=== PATIENT | male | born 1955 | race Hispanic/Latino ===

== ENCOUNTER 2019-10-08 09:30 | Observation (INO) | payer BC, OTHER ==
--- OUTSIDE RECORDS SUMMARY | 2019-10-08 09:33 | XMS REPORT ---
:1955 [facility] Address [address] [place] [address] Care Team Providers Name Role Phone Unavailable Unavailable Unavailable Payers Payer Name Policy Type Policy Number Effective Date Expiration Date Problems This patient has no known problems. Allergies, Adverse Reactions, Alerts Allergy Allergy Status Severity Reaction(s) Onset Inactive Treating Comments Name Type Date Date Clinician No Known DA Active U 2018-07 Drug - Allergies 00:00:0 0 pollen DA Active SV 2018-07 extracts - 00:00:0 0 No Known DA Active U 2018-07 Allergies 00:00:0 0 Medications This patient has no known medications. Results Test Description Test Time Test Comments Text Results Atomic Results Result Comments - XR KNEE 1 OR 2 V 2019-09-17 15:14:00 Patient Name: MADHU GIL Unit No: [id number] EXAMS: CPT CODE: [id number] XR KNEE 1 OR 2 V LT 00805 LEFT KNEE 2 VIEWS PORTABLE COMMENT: The patient is status post joint replacement which is articulating normally. at 1514 Reported and signed by: Tito Kent MD CC: Milad Julian MD Technologist: RUDDY BRINK (RT.R) Transcribed D/ (6970) [email or web address] [facility] NAME: MADHU GIL [address] [facility] PHYS: Milad Reyez MD : 1955 AGE: 64 SEX: M [place], [place] [address] LOC: Y.315 A PHONE #: [phone] EXAM DATE: 09/16/2019 STATUS: DIS IN FAX #: [phone] RAD #: D/C DT 09/17/2019 PAGE 1 Signed Report Patient Name: MADHU GIL Unit No: [id number] EXAMS: CPT CODE: [id number] XR KNEE 1 OR 2 V LT 11193 <Continued> Orig Print D/T: S: 09/17/2019 (1517) [facility] NAME: MADHU GIL [address] [facility] PHYS: Milad Reyez MD : 1955 AGE: 64 SEX: M [place], [place] [address] LOC: Y.315 A PHONE #: [phone] EXAM DATE: 09/16/2019 STATUS: DIS IN FAX #: [phone] RAD #: D/C DT 09/17/2019 PAGE 2 Signed Report BASIC METABOLIC PANEL 2019-09-17 06:51:00 Test Item Value Reference Range Comments SODIUM (test code=NA) 138 mmol/L 136-145 POTASSIUM (test code=K) 4.7 mmol/L 3.5-5.1 CHLORIDE (test code=CL) 101.0 mmol/L 98-107 CARBON DIOXIDE (test code=CO2) 25.1 mmol/L 21-32 GLUCOSE (test code=GLU) 110 mg/dL 70-110 BLOOD UREA NITROGEN (test 15 mg/dL 7-18 code=BUN) GLOMERULAR FILTRATION RATE (test 79.3 >60 Unit of measure: mL/min/1.73 code=GFR) [id number] Range:Healthy Adults >90 mL/min/1.73 m2 For Chronic Kidney Disease: Stage II Mild Decrease in GFR 60-90 Stage III Moderate Decrease in GFR 30-59 Stage IV Severe Decrease in GFR 15-29 Stage V Kidney Failure <15 CREATININE (test code=CREAT) 0.95 mg/dL 0.55-1.30 CALCIUM (test code=CA) 7.3 mg/dL 8.2-10.1 HGB [id number] 05:48:00 Test Item Value Reference Range Comments HEMOGLOBIN (test code=HGB) 11.2 g/dL 12-16 HEMATOCRIT (test code=HCT) 33.2 % 37-47 COMPREHENSIVE METABOLIC [id number] 13:03:00 Test Item Value Reference Range Comments SODIUM (test code=NA) 139 mmol/L 136-145 POTASSIUM (test code=K) 4.2 mmol/L 3.5-5.1 CHLORIDE (test code=CL) 102.0 mmol/L 98-107 CARBON DIOXIDE (test code=CO2) 27.5 mmol/L 21-32 GLUCOSE (test code=GLU) 96 mg/dL 70-110 BLOOD UREA NITROGEN (test 16 mg/dL 7-18 code=BUN) GLOMERULAR FILTRATION RATE 91.4 >60 Unit of measure: (test code=GFR) mL/min/1.73 [id number] Range:Healthy Adults >90 mL/min/1.73 m2 For Chronic Kidney Disease: Stage II Mild Decrease in GFR 60-90 Stage III Moderate Decrease in GFR 30-59 Stage IV Severe Decrease in GFR 15-29 Stage V Kidney Failure <15 CREATININE (test code=CREAT) 0.84 mg/dL 0.55-1.30 TOTAL PROTEIN (test code=PROT) 7.2 g/dL 6.4-8.2 ALBUMIN (test code=ALB) 4.2 g/dL 3.4-5.0 GLOBULIN (test code=GLOB) 3.0 g/dL 2.2-4.2 ALBUMIN/GLOBULIN RATIO (test 1.4 0.7-2.0 code=A/G) CALCIUM (test code=CA) 9.4 mg/dL 8.2-10.1 BILIRUBIN TOTAL (test 0.60 mg/dL 0.2-1.00 code=BILT) SGOT/AST (test code=AST) 34.0 U/L 15-37 SGPT/ALT (test code=ALT) 34.0 U/L 12-78 Please note new normal range. ALKALINE PHOSPHATASE TOTAL 53 U/L 46-116 (test code=ALKP) CBC W/AUTO [id number] 12:43:00 Test Item Value Reference Range Comments WHITE BLOOD CELL (test code=WBC) 5.3 K/mm3 5.7-10.5 RED BLOOD CELL (test code=RBC) 4.40 M/mm3 4.2-5.4 HEMOGLOBIN (test code=HGB) 13.7 g/dL 12-16 HEMATOCRIT (test code=HCT) 40.7 % 37-47 MEAN CELL VOLUME (test code=MCV) 93 fL 80-98 MEAN CELL HGB (test code=MCH) 31.1 pg 27-34 MEAN CELL HGB CONCENTRATION (test code=MCHC) 33.7 g/dL 30.8-34.1 RED CELL DISTRIBUTION WIDTH (test code=RDW) 12.7 % 11-16 PLT (test code=PLT) 258 K/mm3 130-400 MEAN PLATELET VOLUME (test code=MPV) 9.8 fL 8.9-12.1 NEUTROPHIL % (test code=NT%) 62.8 % 45-70 LYMPHOCYTE % (test code=LY%) 24.4 % 20-40 MONOCYTE % (test code=MO%) 9.7 % 3-10 EOSINOPHIL % (test code=EO%) 1.9 % 1-5 BASOPHIL % (test code=BA%) 0.8 % 0.0-1.1 NEUTROPHIL # (test code=NT#) 3.32 K/mm3 2.00-7.50 LYMPHOCYTE # (test code=LY#) 1.29 K/mm3 1.50-4.00 MONOCYTE # (test code=MO#) 0.51 K/mm3 0.2-0.8 EOSINOPHIL # (test code=EO#) 0.10 K/mm3 0.04-0.4 BASOPHIL # (test code=BA#) 0.04 K/mm3 0.02-0.10 MANUAL DIFF REQUIRED (test code=MDIFF) NO MANUAL DIFF NUCLEATED RED BLOOD CELL (test code=NRBC) 0 % 0-0
[2019-10-08 09:48] VITALS: BMI 29.0
[2019-10-08] MEDS ORDERED: ASPIRIN EC 81 MG TAB PO ONE (10:35)
[2019-10-08 11:16] LABS: Absolute Lymphocytes (CBC) 0.7 K/uL (0.7-4.9); Basophils % 0.8 % (0-1.3); Hematocrit 36.3 % (39.6-49.0); Lymphocytes % 13.3 % (15.3-44.8); MPV 7.5 fL (7.6-11.3); RBC Red Blood Cell Count 3.85 M/uL (4.33-5.43)
[2019-10-08 11:43] LABS: ALT/SGPT 23 U/L (12-78); AST/SGOT 17 U/L (15-37); Albumin 3.8 g/dL (3.4-5.0); Alkaline Phosphatase 78 U/L (45-117); BUN Blood Urea Nitrogen 18 mg/dL (7-18); Bicarbonate 31 mmol/L (21-32); Bilirubin Total 0.5 mg/dL (0.2-1.0); CKMB Creatine Kinase MB < 1.0 ng/mL (0.3-3.6); Creatine Phosphokinase 123 U/L (39-308); Glucose Level 102 mg/dL (74-106); Magnesium 2.5 mg/dL (1.8-2.4); Potassium 5.2 mmol/L (3.5-5.1); Protein, Total 7.3 g/dL (6.4-8.2); Sodium Level 138 mmol/L (136-145); Troponin I < 0.02 ng/mL (0.0-0.045)
[2019-10-08] MEDS ORDERED: PNEUMOCOCCAL VACCINE 0.5 ML IMVAC ONE (12:00)
[2019-10-08] MEDS ORDERED: INFLUENZA VACCINE (for 3y+) 0.5 ML DOSE IMVAC ONE (12:00)
--- NOTE | 2019-10-08 12:15 | RAD REPORT ---
EXAM DESCRIPTION: RAD - Chest Pa And Lat (2 Views) - 10/08/2019 11:52 am CLINICAL HISTORY: chest pain Chest pain. COMPARISON: CHEST PA AND LAT 2 VIEW dated 12/08/2010; CHEST PA AND LAT 2 VIEW dated 11/01/2004 FINDINGS: The lungs are clear. The heart is normal in size. No displaced fractures. IMPRESSION: No acute or concerning finding suspected.
--- NOTE | 2019-10-08 13:23 | EKG ---
Test Date: 2019-10-08 Test Time: 11:59:33 Skinning Machine Feeder: AZALEA MEASUREMENT RESULTS: Intervals: Rate: 68 WI: 196 QRSD: 94 QT: 396 QTc: 421 [place]: P: 25 WI: 196 QRS: -16 T: 20 INTERPRETIVE STATEMENTS: Normal sinus rhythm Normal ECG Compared to ECG 11/01/2004 14:16:00 No significant changes Electronically Signed On 10-08-19 13:22:59 LEGAL SERVICES MANAGER by Benedicto Patel
[2019-10-08 13:58] LABS: Urine Appearance CLEAR; Urine Bilirubin NEGATIVE (NEG); Urine Blood NEGATIVE (NEG); Urine Color YELLOW; Urine Glucose NEGATIVE (NEG); Urine Protein NEGATIVE (NEG); Urine Urobilinogen 0.2 mg/dL (0.2-1.0)
[2019-10-08 14:09] LABS: Urine Microscopic Reflex NO UMIC
--- NOTE | 2019-10-08 14:52 | RAD REPORT ---
EXAM DESCRIPTION: CT - Chest For Pe Angio - 10/08/2019 2:41 pm CLINICAL HISTORY: Chest pain COMPARISON: October 08, 2019 chest x-ray TECHNIQUE: Dynamically enhanced axial 3 mm thick images of the chest were obtained during administra tion of <100> mL Isovue 370 IV contrast. Coronal and oblique reconstruction images were generated and reviewed. Exam utilizes a protocol for optimal evaluation of pulmonary arterial tree. Maximum intensity projections 3D imaging was utilized All CT scans are performed using dose optimization technique as appropriate and may include automated exposure control or mA/KV adjustment according to patient size. FINDINGS: A pulmonary embolus is not seen. A thoracic aortic aneurysm is not noted. A pleural effusion is not seen. A pericardial effusion is not seen. A lung consolidation is not present. IMPRESSION: Negative for a pulmonary embolism.
--- NOTE | 2019-10-08 15:41 | ECHO ---
HEIGHT: 5 ft 6 in WEIGHT: 180 lb 0 oz DATE OF STUDY: 10/08/[address]: Kevin Logna MD 2-DIMENSIONAL: YES M.MODE: YES DOPPLER: YES COLOR FLOW: YES TDS: NO PORTABLE: NO DEFINITY: NO BUBBLE STUDY: NO DIAGNOSIS: CONGESTIVE HEART FAILURE CARDIAC HISTORY: CATHERIZATION: NO SURGERY: NO PROSTHETIC VALVE: NO PACEMAKER: NO MEASUREMENTS (cm) DIASTOLIC (NORMALS) SYSTOLIC (NORMALS) IVSd 1.0 (0.6-1.2) LA Diam 3.3 (1.9-4.0) LVEF 57% LVIDd 3.8 (3.5-5.7) LVIDs 2.7 (2.0-3.5) %FS 30% LVPWd 1.0 (0.6-1.2) Ao Diam 2.7 (2.0-3.7) 2 DIMENSIONAL ASSESSMENT: RIGHT ATRIUM: NORMAL LEFT ATRIUM: NORMAL RIGHT VENTRICLE: NORMAL LEFT VENTRICLE: NORMAL TRICUSPID VALVE: NORMAL MITRAL VALVE: NORMAL PULMONIC VALVE: NORMAL AORTIC VALVE: MILD SCLEROSIS PERICARDIAL EFFUSION: NONE AORTIC ROOT: NORMAL LEFT VENTRICULAR WALL MOTION: NORMAL. DOPPLER/COLOR FLOW: NO AORTIC STENOSIS OR AORTIC REGURGITATION. NORMAL DOPPLER. COMMENTS: NORMAL LEFT VENTRICULAR EJECTION FRACTION. AORTIC SCLEROSIS WITH NO AORTIC STENOSIS/ AORTIC REGURGITATION. TECHNOLOGIST: SHARRI LINDSAY
--- NOTE | 2019-10-08 18:08 | RAD REPORT ---
EXAM DESCRIPTION: US - Extrem Venous W Compress Dimitri - 10/08/2019 6:02 pm CLINICAL HISTORY: rule out DVT Bilateral leg edema and swelling. COMPARISON: No comparisons TECHNIQUE: Real-time sonographic interrogation of the left and right lower extremity deep venous sys tems was performed. FINDINGS: Normal compressibility, flow augmentation, phasic flow and spontaneous flow is identified in both the left and right lower extremity deep venous systems. IMPRESSION: No sonographic evidence of left or right lower extremity deep venous thrombosis.
[2019-10-08 23:21] VITALS: O2SAT 98
--- NOTE | 2019-10-09 05:53 | HP ---
Date of Admission: 10/08/2019 Chief Complaint: Chest pain. History Of Present Illness: This is a 64-year-old male patient, who came in to office today for his routine physical exam and informed me that he had left knee replacement surgery done on September 16, 2019. This was done in [place]; and upon further questioning, he informed me that he did not take an y anticoagulation therapy for DVT prophylaxis after he was discharged from hospital. He stayed in [facility] overnight. He is recovering well from this surgery, but also reported that for last 2 weeks h e is having chest pain and chest pain is just lateral to the nipple area on both side and it lasts of f and on for about hour or so in morning time. Denies any association with meal or activity. No oth er associated symptoms like nausea, vomiting, diaphoresis. No radiation of pain. No shortness of br eath. No cough, cold, congestion. No rash. After the patient was evaluated at the office, decision was made to admit him to hospital for further evaluation and management of his chest pain problem. Allergies: NO KNOWN ALLERGIES. Medications: List reviewed. Review of Systems: Cardiovascular: As mentioned above. All other systems reviewed and negative. Past Medical History: Allergic rhinitis, impaired fasting glucose, hypertension, mixed hyperlipidemi a, benign prostatic hypertrophy, high PSA for which he had negative prostate biopsy, leukocytopenia, anemia, osteoporosis. Past Surgical History: Significant for prostate biopsy, bilateral knee replacement surgery, and surg keyshawn on his thumb and foot surgery. Family History: Father had Alzheimer disease. Mother, hypertension and benign brain tumor. Social History: Prior history of smoking not at present time. Use of alcohol, drinks about 6-12 bee rs a week. Physical Examination: Vital Signs: BP 106/65, pulse 76, respiratory rate 16, temperature 98.1. Weight 178 pounds, height 67 inches. General: Awake, alert, oriented, not in distress. HEENT: Head atraumatic, normocephalic. Conjunctivae nonerythematous. Sclerae white. Mouth, no thr ush or edema noted. Ears/Nose, no mass, lesion, discharge noted. Neck: Supple. No JVD, lymph nodes, bruit, thyromegaly noted. Lungs: Bilateral good equal air entry. Clear to auscultation. No rhonchi. No rales. Heart: Normal heart sounds, no murmur or gallop. Abdomen: Soft, bowel sounds normal. No guarding, rigidity, tenderness, mass, hepatosplenomegaly, dis tention, or bruit noted. Extremities: Left knee has surgical scar from recent surgery of knee replacement and his left knee s urgical scar is healing well. No evidence of any redness, swelling, discharge, bleeding. Patient owen s some bruising in the left lower leg, which is expected from recent surgery. Skin: No rash, ulcer, cellulitis. Lymphatics: No lymph node enlargement in neck, supraclavicular, infraclavicular region. Neuro: No focal neurological deficit. Chest: Unremarkable. External Genitalia: Deferred. Rectal: Deferred. Laboratory Data: White count 5.3, hemoglobin 12.4, platelets 306. Sodium 138, potassium 5.2, chlori de 105, bicarb 31, BUN 18, creatinine 0.97, glucose 102. Liver function tests unremarkable. Troponi n less than 0.02. TSH 1.02. D-dimer elevated at 6441. Urinalysis negative. Chest x-ray, no acute cardiopulmonary changes. EKG, normal sinus rhythm, normal EKG. Impression: 1.Chest pain. 2.Hypertension. 3.Mixed hyperlipidemia. 4.Benign prostatic hypertrophy. 5.Impaired fasting glucose. 6.Allergic rhinitis. Plan: Admit patient to hospital for further evaluation and management of this problem. Patient is a ppropriate for observation. Patient's cardiac enzymes are negative. EKG is unremarkable. Our diana rn is that we need to rule out possibility of pulmonary embolism and CAT scan of the chest per PE pro tocol was done after patient was admitted to the hospital, which came back negative for pulmonary emb olism and venous Doppler of leg was negative for DVT. Tomorrow morning, we will do Lexiscan stress t est. Echocardiogram done today was unremarkable. I will see him tomorrow morning for followup. Jeniffer harvey was given aspirin 162 mg after admission to the hospital and will continue aspirin 81 mg daily. ASHLEE/MODL Voice ID: [id number]
[2019-10-09] MEDS ORDERED: ASPIRIN EC 81 MG TAB PO SCH (09:00)
[2019-10-09] MEDS ORDERED: REGADENOSON 0.4 MG/5 ML SYR IV ONE (09:31)
--- NOTE | 2019-10-09 09:41 | RAD REPORT ---
EXAM DESCRIPTION: NM - Rest Stress Cardiac Imaging - 10/09/2019 9:27 am CLINICAL HISTORY: CP Chest pain. COMPARISON: No comparisons TECHNIQUE: The patient was administered approximately 10mCi of Tc 99m Sestamibi prior to resting SPE CT imaging of the heart. The patient was then administered approximately 30 mCi of Tc 99m Sestamibi f ollowing exercise or pharmacologic stress. Multiplanar SPECT images were reviewed. FINDINGS: No stress induced ischemic defect is seen to suggest stress induced ischemia. No fixed def ect is seen to suggest hibernating myocardium or scarred myocardium. The end diastolic volume is 94 ml, the end systolic volume is 40 ml, and the ejection fraction is 57 %. IMPRESSION: No stress induced ischemia.
[2019-10-09 12:26] VITALS: BP 120/75; TEMP 98.7
[2019-10-09] MEDS ORDERED: INFLUENZA VACCINE (for 3y+) 0.5 ML DOSE IMVAC ONE (15:00)
[2019-10-09] MEDS ORDERED: PNEUMOCOCCAL VACCINE 0.5 ML IMVAC ONE (15:00)
--- NOTE | 2019-10-09 15:22 | TREADPHA ---
DX: CONGESTIVE HEART FAILURE Date of Study: 10/09/2019 Ht: 5 6 Wt: 179 lb 12.8 oz Consulting Physician: AJCKY MEDICATIONS: ASPIRIN HISTORY: 64 YEAR OLD MALE, COMLAINTS OF CHEST PAIN, HISTORY OF HYPERTENSION, HYPERLIPIDEMIA, NON-SMOKER, OCCASIONAL DRINKER. PHYSICIAL EXAMINATION: RESTING B.P.: 137/85 RESTING H.R.: 81 RESTING EKG: NORMAL PROTOCOL: PHARMACOLOGIC EXERCISE TIME: 3:30 B.P. AT PEAK STRESS: 129/82 IMPRESSION: LEXISCAN INJECTED FOLLOWED BY CARDIOLITE PER PROTOCOL. SEE NUCLEAR MEDICINE REPORT. NO SUPRAVENTRICULAR TACHYCARDIA, VENTRICULAR TACHYCARDIA, PREMATURE ATRIAL COMPLEXES, PREMATURE VENTRICULAR COMPLEXES. PATIENT REPORTED CHEST PAIN, THREE OUT OF TEN ON PAIN SCALE.
--- NOTE | 2019-10-10 04:05 | DS ---
Date of Discharge: 10/09/2019 Disposition: Discharged to go home. Physical Examination: HEENT: Unremarkable. Lungs: Clear to auscultation. Heart: Sounds normal. Abdomen: Soft. Bowel sounds normal. No guarding, rigidity, tenderness, or distention. Extremities: No leg edema. Final Diagnoses: 1. Chest pain. 2. Hypertension. 3. Mixed hyperlipidemia. 4. Benign prostatic hypertrophy. 5. Impaired fasting glucose. 6. Allergic rhinitis. Hospital Course: A 64-year-old pleasant male patient, who was admitted to the hospital after he came into office and complaining of chest pain. Please see dictated H and P for more information. Cardiac enzymes remained negative. Chest x-ray was negative. CAT scan of the chest per PE protocol was negative for pulmonary embolism or any other acute lung findings. The patient had an echocardiogram done, which was unremarkable and today he had a negative Lexiscan stress test. Patient's chest pain, I will consider that to be musculoskeletal in nature. He had some anti-inflammatory medication, which is ketorolac and this was prescribed to him by his orthopedic surgeon after recent knee surgery and he was advised to take that and I will see him next week on Sunday for followup. ASHLEE/MARCELLUS Voice ID: [id number] Report ID: [id number] NITO
== END 2019-10-09 14:50 | disposition home or self-care (01) ==
LOC: 4TH 09:30
PROVIDERS: ADMIT Internal Medicine; ATTEND Internal Medicine
DX: R07.9 Chest pain, unspecified (principal); I10 Essential (primary) hypertension; E78.2 Mixed hyperlipidemia; N40.0 Benign prostatic hyperplasia without lower urinary tract symptoms; J30.9 Allergic rhinitis, unspecified; Z96.652 Presence of left artificial knee joint; Z23 Encounter for immunization
CPT/HCPCS: 93005; 93017; 93306; 85025; 36415; 83735; 82550; 85379; 84443; 81003; 84484; 82553; 80053; 71275; 71046; 90471 ×2; 93970; 90670; 78452; Q9967; G0379; Q2035; J2785; A9500; G0378 ×3

== ENCOUNTER 2020-06-27 13:37 | Emergency (ER) | payer BC, OTHER ==
--- OUTSIDE RECORDS SUMMARY | 2020-06-27 13:40 | XMS REPORT | Continuity of Care Document ---
:1955 Author Organization [facility] t Address [address] [place] [address] Care Team Providers Name Role Phone Unavailable Unavailable Unavailable Payers Payer Name Policy Type Policy Number Effective Date Expiration Date S ource Problems This patient has no known problems. Allergies, Adverse Reactions, Alerts Allergy Allergy Status Severity Reaction(s) Onset Inactive Treating Comm ents Source Name Type Date Date Clinician No Known DA Active U 2017-10 [facility] 0-30 Clear Allergie 00:00: Bedoya s 00 [facility] pollen DA Active SV 2017-10 [facility] extracts 0-30 Clear 00:00: Bedoya 00 [facility] No Known DA Active U 2017-10 [facility] Allergie 0-30 [place] [facility] Medications This patient has no known medications. Procedures This patient has no known procedures. Results Test Description Test Time Test Comments Results Result Comments Source - XR KNEE 1 OR 2 V 2019-09-17 Patient Name: LT 15:14:00 MADHU GIL Unit No: [id number] EXAMS: CPT CODE: [id number] XR KNEE 1 OR 2 [place] [address] LEFT KNEE 2 VIEWS PORTABLE COMMENT: The patient is status post joint replacement which is articulating normally. at 1514 Reported and signed by: Tito Kent MD CC: Milad Julian MD Technologist: RUDDY BRINK (RT.R) Transcribed D/ (0611) Barbara.JCL [facility] NAME: MADHU GIL [address] [place] [address] PHYS: Milad Reyez MD : 1955 AGE: 64 SEX: M [place], [place] [address] LOC: Y.315 A PHONE #: [phone] EXAM DATE: 09/16/2019 STATUS: DIS IN FAX #: [phone] RAD #: D/C DT 09/17/2019 PAGE 1 Signed Report Patient Name: MADHU GIL Unit No: [id number] EXAMS: CPT CODE: [id number] XR KNEE 1 OR 2 [place] [address] <Continued> Orig Print D/T: S: 09/17/2019 (8832) [facility] NAME: MADHU GIL [address] [place] [address] PHYS: Milad Reyez MD : 1955 AGE: 64 SEX: M [place], [place] [address] LOC: Y.315 A PHONE #: [phone] EXAM DATE: 09/16/2019 STATUS: DIS IN FAX #: [phone] RAD #: D/C DT 09/17/2019 PAGE 2 Signed Report BASIC METABOLIC PANEL 2019-09-17 06:51:00 Test Item Value Reference Range Interpretation Comme nts SODIUM (test code = NA) 138 mmol/L 136-145 N POTASSIUM (test code = K) 4.7 mmol/L 3.5-5.1 N CHLORIDE (test code = CL) 101.0 mmol/L 98-107 N CARBON DIOXIDE (test code = 25.1 mmol/L 21-32 N CO2) GLUCOSE (test code = GLU) 110 mg/dL 70-110 N BLOOD UREA NITROGEN (test code 15 mg/dL 7-18 N = BUN) GLOMERULAR FILTRATION RATE 79.3 >60 U nit of measure: (test code = GFR) mL/min/1.7 3 [id number] Range:Healthy A dults >90 mL/min/1.73 m2 For Chronic Kidney Disease: Stage II Mi ld Decrease in GFR 60-9 0 Stage III Moderate Decrease in GFR 30-59 Stage IV Severe Decrease in GFR 15-29 Stage V Kidney Failure <15 CREATININE (test code = CREAT) 0.95 mg/dL 0.55-1.30 N CALCIUM (test code = CA) 7.3 mg/dL 8.2-10.1 L HGB [id number] 05:48:00 Test Item Value Reference Range Interpretation Comments HEMOGLOBIN (test code = HGB) 11.2 g/dL 12-16 L HEMATOCRIT (test code = HCT) 33.2 % 37-47 L COMPREHENSIVE METABOLIC [id number] 13:03:00 Test Item Value Reference Range Interpretation Comments SODIUM (test code = 139 mmol/L 136-145 N NA) POTASSIUM (test code = 4.2 mmol/L 3.5-5.1 N K) CHLORIDE (test code = 102.0 mmol/L 98-107 N CL) CARBON DIOXIDE (test 27.5 mmol/L 21-32 N code = CO2) GLUCOSE (test code = 96 mg/dL 70-110 N GLU) BLOOD UREA NITROGEN 16 mg/dL 7-18 N (test code = BUN) GLOMERULAR FILTRATION 91.4 >60 Unit o f measure: RATE (test code = GFR) mL/mi n/1.73 [id number] Range:Healthy Adults >90 mL/min/1.73 m2 For Chronic Kidney Disease: St age II Mild Decrease in GFR 60-90 St age III Moderate Decrease in GFR 30-59 Stage IV Severe Decre ase in GFR 15- 29 Stage V Kidney Failure <15 CREATININE (test code 0.84 mg/dL 0.55-1.30 N = CREAT) TOTAL PROTEIN (test 7.2 g/dL 6.4-8.2 N code = PROT) ALBUMIN (test code = 4.2 g/dL 3.4-5.0 N ALB) GLOBULIN (test code = 3.0 g/dL 2.2-4.2 N GLOB) ALBUMIN/GLOBULIN RATIO 1.4 0.7-2.0 N (test code = A/G) CALCIUM (test code = 9.4 mg/dL 8.2-10.1 N CA) BILIRUBIN TOTAL (test 0.60 mg/dL 0.2-1.00 N code = BILT) SGOT/AST (test code = 34.0 U/L 15-37 N AST) SGPT/ALT (test code = 34.0 U/L 12-78 N Please note new ALT) normal range. ALKALINE PHOSPHATASE 53 U/L 46-116 N TOTAL (test code = ALKP) CBC W/AUTO [id number] 12:43:00 Test Item Value Reference Range Interpretation Comments WHITE BLOOD CELL (test code = WBC) 5.3 K/mm3 5.7-10.5 L RED BLOOD CELL (test code = RBC) 4.40 M/mm3 4.2-5.4 N HEMOGLOBIN (test code = HGB) 13.7 g/dL 12-16 N HEMATOCRIT (test code = HCT) 40.7 % 37-47 N MEAN CELL VOLUME (test code = MCV) 93 fL 80-98 N MEAN CELL HGB (test code = MCH) 31.1 pg 27-34 N MEAN CELL HGB CONCENTRATION (test 33.7 g/dL 30.8-34.1 N code = MCHC) RED CELL DISTRIBUTION WIDTH (test 12.7 % 11-16 N code = RDW) PLT (test code = PLT) 258 K/mm3 130-400 N MEAN PLATELET VOLUME (test code = 9.8 fL 8.9-12.1 N MPV) NEUTROPHIL % (test code = NT%) 62.8 % 45-70 N LYMPHOCYTE % (test code = LY%) 24.4 % 20-40 N MONOCYTE % (test code = MO%) 9.7 % 3-10 N EOSINOPHIL % (test code = EO%) 1.9 % 1-5 N BASOPHIL % (test code = BA%) 0.8 % 0.0-1.1 N NEUTROPHIL # (test code = NT#) 3.32 K/mm3 2.00-7.50 N LYMPHOCYTE # (test code = LY#) 1.29 K/mm3 1.50-4.00 L MONOCYTE # (test code = MO#) 0.51 K/mm3 0.2-0.8 N EOSINOPHIL # (test code = EO#) 0.10 K/mm3 0.04-0.4 N BASOPHIL # (test code = BA#) 0.04 K/mm3 0.02-0.10 N MANUAL DIFF REQUIRED (test code = NO MANUAL DIFF MDIFF) NUCLEATED RED BLOOD CELL (test 0 % 0-0 N code = NRBC)
--- NOTE | 2020-06-27 14:32 | ER ---
Nurse's Notes [facility] Name: Fady Mcdowell Age: 64 yrs Sex: Male : 1955 Arrival Date: 06/27/2020 Time: 13:43 Bed Waiting Private MD: Diagnosis: Presentation: 06/27 13:47 Chief complaint: Patient states: sore throat, nasal drip since Sunday. Had a +COVID on sv last week and had another test and they said it was negative but wants to know which one it is. Pt requesting a COVID test. Coronavirus screen: Client denies travel out of the [place] in the last 14 days. runny nose, sore throat. Ebola Screen: No symptoms or risks identified at this time. Risk Assessment: Do you want to hurt yourself or someone else? Patient reports no desire to harm self or others. Onset of symptoms was June 21, 2020. 13:47 Method Of Arrival: Ambulatory sv 13:47 Acuity: KATHARINE 4 sv 13:51 Initial Sepsis Screen: Does the patient meet any 2 criteria? HR > 90 bpm. No. Patient's sv initial sepsis screen is negative. Does the patient have a suspected source of infection? No. Patient's initial sepsis screen is negative. Triage Assessment: 13:47 General: Appears in no apparent distress. comfortable, Behavior is calm, cooperative, sv appropriate for age. Pain: Complains of pain in throat. EENT: Reports pain when swallowing. Neuro: Level of Consciousness is awake, alert, obeys commands, Gait is steady. Respiratory: Respiratory effort is even, unlabored. Historical: - Allergies: 13:49 No Known Allergies; sv Vital Signs: 13:51 BP 148 / 76; Pulse 103; Resp 16; Temp 99.1; Pulse Ox 100% ; Weight 83.91 kg; Height 5 sv ft. 6 in. (167.64 cm); 13:51 Body Mass Index 29.86 (83.91 kg, 167.64 cm) sv ED Course: 13:43 Patient arrived in ED. mr 13:47 Arm band placed on. sv 13:49 Triage completed. sv Administered Medications: No medications were administered Outcome: 14:32 Eloped from waiting room, before seeing physician Time discovered patient gone: May at 14:32 14:32 Patient left the ED. sv Signatures: Mary Kim RN RN sv PashaJayde mr Corrections: (The following items were deleted from the chart) 13:52 13:47 Chief complaint: Patient states: sore throat, nasal drip since Sunday sv sv
[2020-06-30 17:12] VITALS: BP 148/76; TEMP 99.1; O2SAT 100
== END 2020-06-27 14:32 | disposition left against medical advice (07) ==
LOC: ER 13:37
DX: Z53.21 Procedure and treatment not carried out due to patient leaving prior to being seen by health care provider (principal)
CPT/HCPCS: 99281

== ENCOUNTER 2022-10-13 15:42 | Emergency (ER) | payer OTHER ==
--- OUTSIDE RECORDS SUMMARY | 2022-10-13 15:46 | XMS REPORT | Continuity of Care Document ---
:[address] [facility] t Address [address] [place] [address] Care Team Providers Name Role Phone Oumar Attending Clinician Unavailable Griffin Butcher Attending Clinician [phone] Milad Julian Attending Clinician Unavailable Oumar Admitting Clinician Unavailable Physician, No Primary or Family Admitting Clinician Unavaila ble Payers Payer Name Policy Type Policy Number Effective Date Expiration Date Dena JASMINE (MEDICARE [id number] 2019 REPLACEMENT PPO) 00:00:00 Problems Condition Condition Condition Status Onset Resolution Last Treating Co mments Source Name Details Category Date Date Treatment Clinician Date Hypertensi Hypertensi Problem Active 2015-10 [place] ve ve 2-27 [facility] disorder Disorder 00:00: Urolog y 00 Raised Raised Problem Active 2015-10 [place] prostate Prostate 2-27 [facility] specific Specific 00:00: Urolog y antigen Antigen 00 Lower Lower Problem Active 2015-10 [place] urinary Urinary 2-27 [facility] tract Tract 00:00: Urology symptoms Symptoms 00 due to Due to benign Benign prostatic Prostatic hypertroph Hypertroph y y Allergies, Adverse Reactions, Alerts Allergy Allergy Status Severity Reaction(s) Onset Inactive Treating Comm ents Source Name Type Date Date Clinician No Known DA Active U 2017-10 [facility]ie 0-30 [place] [facility] 00[facility] No Known DA Active U 2017-10 [facility] Drug 0-30 [place] Allergie 00:00: Orthope s 00 dic Hosp[facility] pollen DA Active SV SNEEZING, 2017- [facility] extracts WATERY EYES 0-30 [place] [facility] 00:00: Orthope 00 dic Hospita [facility] No Known DA Active U 2017-10 [facility] Drug 0-30 Clear Allergie 00:00: Bedoya s 00 [facility] pollen DA Active SV 2017-10 [facility] extracts 0-30 Clear 00:00: Bedoya 00 [facility] Social History Smoking Status Start Date Stop Date Source Never Smoker [facility] Medications Ordered Filled Start Stop Current Ordering Indication Dosage Frequency Signature Comments Components Source Medication Medication Date Date Medication? Clinician (SIG) Name Name alendronate alendronate No alendronat [place] 70 mg 70 mg e 70 mg [facility] tablet TAKE tablet TAKE tablet Urology 1 TABLET BY 1 TABLET BY TAKE 1 MOUTH ONE MOUTH ONE TABLET BY TIME PER TIME PER MOUTH ONE WEEK WEEK TIME PER WEEK amoxicillin amoxicillin No amoxicilli [place] 500 mg 500 mg n 500 mg [facility] capsule capsule capsule Urolog y TAKE 1 TAKE 1 TAKE 1 CAPSULE BY CAPSULE BY CAPSULE BY MOUTH 3 MOUTH 3 MOUTH 3 TIMES A DAY TIMES A DAY TIMES A FOR 3 DAYS. FOR 3 DAYS. DAY FOR 3 START A DAY START A DAY DAYS. PRIOR TO PRIOR TO START A DENTAL DENTAL DAY PRIOR APPOINTMENT APPOINTMENT TO DENTAL APPOINTMEN T amoxicillin amoxicillin No amoxicilli [place] 500 500 n 500 [facility] mg-potassiu mg-potassiu mg-potassi Urology m m um clavulanate clavulanate clavulanat 125 mg 125 mg e 125 mg tablet TAKE tablet TAKE tablet ONE TABLET ONE TABLET TAKE ONE BY MOUTH BY MOUTH TABLET BY EVERY EVERY MOUTH TWELVE TWELVE EVERY HOURS UNTIL HOURS UNTIL TWELVE GONE GONE HOURS UNTIL GONE amoxicillin amoxicillin No amoxicilli [place] [phone] n 875 [facility] mg-potassiu mg-potassiu mg-potassi Urology m m um clavulanate clavulanate clavulanat 125 mg 125 mg e 125 mg tablet TAKE tablet TAKE tablet 1 TABLET BY 1 TABLET BY TAKE 1 MOUTH EVERY MOUTH EVERY TABLET BY 12 HOURS 12 HOURS MOUTH EVERY 12 HOURS aspirin 81 aspirin 81 No aspirin 81 Alexandre mg mg mg [facility] tablet,didi tablet,didi tablet,del Urology yed release yed release ayed release atorvastati atorvastati No atorvastat [place] n 20 mg n 20 mg in 20 mg [facility] tablet TAKE tablet TAKE tablet Urology 1 TABLET BY 1 TABLET BY TAKE 1 MOUTH EVERY MOUTH EVERY TABLET BY DAY DAY MOUTH EVERY DAY betamethaso betamethaso No betamethas [place] ne ne one [facility] dipropionat dipropionat dipropiona Urology e 0.05 % e 0.05 % te 0.05 % topical topical topical cream APPLY cream APPLY cream TO RASH ON TO RASH ON APPLY TO LEGS TWICE LEGS TWICE RASH ON A DAY FOR 2 A DAY FOR 2 LEGS TWICE WEEKS/MONTH WEEKS/MONTH A DAY FOR . . 2 WEEKS/VANDANA H. Bystolic 5 Bystolic 5 No Bystolic 5 Alexandre mg tablet mg tablet mg tablet [facility] chlorhexidi chlorhexidi No chlorhexid [place] ne ne ine [facility] gluconate gluconate gluconate Urology 0.12 % 0.12 % 0.12 % mouthwash mouthwash mouthwash TAKE 15 ML TAKE 15 ML TAKE 15 ML BY MOUTH BY MOUTH BY MOUTH EVERY EVERY EVERY TWELVE TWELVE TWELVE HOURS. HOURS. HOURS. SWISH FOR SWISH FOR SWISH FOR TWO MINUTES TWO MINUTES TWO AND SPIT. AND SPIT. MINUTES DO NOT DO NOT AND SPIT. SWALLOW. SWALLOW. DO NOT SWALLOW. Clenpiq 10 Clenpiq 10 No Clenpiq 10 [place] mg-3.5 mg-3.5 mg-3.5 [facility] gram-12 gram-12 gram-12 Urolog y gram/160 mL gram/160 mL gram/160 oral oral mL oral solution solution solution TAKE TAKE TAKE DIRECTED DIRECTED DIRECTED diclofenac diclofenac No diclofenac [place] 1 % topical 1 % topical 1 % M etro gel APPLY 1 gel APPLY 1 topical Urology GRAM TO GRAM TO gel APPLY AFFECTED AFFECTED 1 GRAM TO AREA TWICE AREA TWICE AFFECTED A DAY A DAY AREA TWICE NEEDED CAN NEEDED CAN A DAY APPLY UP TO APPLY UP TO NEEDED CAN 2 GRAMS IF 2 GRAMS IF APPLY UP NEEDED NEEDED TO 2 GRAMS IF NEEDED lisinopril lisinopril No lisinopril [place] 10 mg 10 mg 10 mg [facility] tablet TAKE tablet TAKE tablet Urology 1 TABLET BY 1 TABLET BY TAKE 1 MOUTH EVERY MOUTH EVERY TABLET BY DAY DAY MOUTH EVERY DAY meloxicam meloxicam No meloxicam [place] 15 mg 15 mg 15 mg [facility] tablet TAKE tablet TAKE tablet Urology 1 TABLET BY 1 TABLET BY TAKE 1 MOUTH EVERY MOUTH EVERY TABLET BY DAY WITH A DAY WITH A MOUTH MEAL MEAL EVERY DAY WITH A MEAL metoprolol metoprolol No metoprolol [place] succinate succinate succinate [facility] ER 25 mg ER 25 mg ER 25 mg Uro logy tablet,exte tablet,exte tablet,ext nded nded ended release 24 release 24 release 24 hr TAKE 1 hr TAKE 1 hr TAKE 1 TABLET BY TABLET BY TABLET BY MOUTH MOUTH MOUTH EVERYDAY AT EVERYDAY AT EVERYDAY BEDTIME BEDTIME AT BEDTIME prednisone prednisone No prednisone [place] 10 mg 10 mg 10 mg [facility] tablet tablet tablet Urology PLEASE SEE PLEASE SEE PLEASE SEE ATTACHED ATTACHED ATTACHED FOR FOR FOR DETAILED DETAILED DETAILED DIRECTIONS DIRECTIONS DIRECTIONS tramadol 50 tramadol 50 No tramadol [place] mg tablet mg tablet 50 mg Metr o TAKE 1 TAKE 1 tablet Urology TABLET BY TABLET BY TAKE 1 MOUTH EVERY MOUTH EVERY TABLET BY 4 TO 6 4 TO 6 MOUTH HOURS HOURS EVERY 4 TO 6 HOURS alendronate alendronate No alendronat [place] 70 mg 70 mg e 70 mg [facility] tablet TAKE tablet TAKE tablet Urology 1 TABLET BY 1 TABLET BY TAKE 1 MOUTH ONE MOUTH ONE TABLET BY TIME PER TIME PER MOUTH ONE WEEK WEEK TIME PER WEEK amoxicillin amoxicillin No amoxicilli [place] 500 mg 500 mg n 500 mg [facility] capsule capsule capsule Urolog y TAKE 1 TAKE 1 TAKE 1 CAPSULE BY CAPSULE BY CAPSULE BY MOUTH THREE MOUTH THREE MOUTH TIMES A DAY TIMES A DAY THREE X 3 DAYS X 3 DAYS TIMES A START A DAY START A DAY DAY X 3 PRIOR TO PRIOR TO START DENTAL DENTAL A DAY APPOINTMENT APPOINTMENT PRIOR TO DENTAL APPOINTMEN T aspirin 81 aspirin 81 No aspirin 81 Alexandre mg mg mg [facility] tablet,didi tablet,didi tablet,del Urology yed release yed release ayed release atorvastati atorvastati No atorvastat [place] n 20 mg n 20 mg in 20 mg [facility] tablet TAKE tablet TAKE tablet Urology 1 TABLET BY 1 TABLET BY TAKE 1 MOUTH EVERY MOUTH EVERY TABLET BY DAY DAY MOUTH EVERY DAY Bystolic 5 Bystolic 5 No Bystolic 5 Alexandre mg tablet mg tablet mg tablet [facility] lisinopril lisinopril No lisinopril [place] 10 mg 10 mg 10 mg [facility] tablet TAKE tablet TAKE tablet Urology 1 TABLET BY 1 TABLET BY TAKE 1 MOUTH EVERY MOUTH EVERY TABLET BY DAY DAY MOUTH EVERY DAY metoprolol metoprolol No metoprolol [place] succinate succinate succinate [facility] ER 25 mg ER 25 mg ER 25 mg Uro logy tablet,exte tablet,exte tablet,ext nded nded ended release 24 release 24 release 24 hr TAKE 1 hr TAKE 1 hr TAKE 1 TABLET BY TABLET BY TABLET BY MOUTH MOUTH MOUTH EVERYDAY AT EVERYDAY AT EVERYDAY BEDTIME BEDTIME AT BEDTIME tramadol 50 tramadol 50 No tramadol Alexandre mg tablet mg tablet 50 mg Metr o TAKE 1 TAKE 1 tablet Urology TABLET BY TABLET BY TAKE 1 MOUTH EVERY MOUTH EVERY TABLET BY 4 TO 6 4 TO 6 MOUTH HOURS HOURS EVERY 4 TO 6 HOURS alendronate alendronate No alendronat [place] 70 mg 70 mg e 70 mg [facility] tablet TAKE tablet TAKE tablet Urology 1 TABLET BY 1 TABLET BY TAKE 1 MOUTH ONE MOUTH ONE TABLET BY TIME PER TIME PER MOUTH ONE WEEK WEEK TIME PER WEEK amoxicillin amoxicillin No amoxicilli [place] 500 mg 500 mg n 500 mg [facility] capsule capsule capsule Urolog y TAKE 1 TAKE 1 TAKE 1 CAPSULE BY CAPSULE BY CAPSULE BY MOUTH THREE MOUTH THREE MOUTH TIMES A DAY TIMES A DAY THREE X 3 DAYS X 3 DAYS TIMES A START A DAY START A DAY DAY X 3 PRIOR TO PRIOR TO START DENTAL DENTAL A DAY APPOINTMENT APPOINTMENT PRIOR TO DENTAL APPOINTMEN T aspirin 81 aspirin 81 No aspirin 81 Alexandre mg mg mg [facility] tablet,didi tablet,didi tablet,del Urology yed release yed release ayed release atorvastati atorvastati No atorvastat [place] n 20 mg n 20 mg in 20 mg [facility] tablet TAKE tablet TAKE tablet Urology 1 TABLET BY 1 TABLET BY TAKE 1 MOUTH EVERY MOUTH EVERY TABLET BY DAY DAY MOUTH EVERY DAY Bystolic 5 Bystolic 5 No Bystolic 5 Alexandre mg tablet mg tablet mg tablet [facility] lisinopril lisinopril No lisinopril [place] 10 mg 10 mg 10 mg [facility] tablet TAKE tablet TAKE tablet Urology 1 TABLET BY 1 TABLET BY TAKE 1 MOUTH EVERY MOUTH EVERY TABLET BY DAY DAY MOUTH EVERY DAY metoprolol metoprolol No metoprolol [place] succinate succinate succinate [facility] ER 25 mg ER 25 mg ER 25 mg Uro logy tablet,exte tablet,exte tablet,ext nded nded ended release 24 release 24 release 24 hr TAKE 1 hr TAKE 1 hr TAKE 1 TABLET BY TABLET BY TABLET BY MOUTH MOUTH MOUTH EVERYDAY AT EVERYDAY AT EVERYDAY BEDTIME BEDTIME AT BEDTIME tramadol 50 tramadol 50 No tramadol Alexandre mg tablet mg tablet 50 mg Metr o TAKE 1 TAKE 1 tablet Urology TABLET BY TABLET BY TAKE 1 MOUTH EVERY MOUTH EVERY TABLET BY 4 TO 6 4 TO 6 MOUTH HOURS HOURS EVERY 4 TO 6 HOURS alendronate alendronate No alendronat [place] 70 mg 70 mg e 70 mg [facility] tablet TAKE tablet TAKE tablet Urology 1 TABLET BY 1 TABLET BY TAKE 1 MOUTH ONCE MOUTH ONCE TABLET BY A WEEK A WEEK MOUTH ONCE A WEEK amoxicillin amoxicillin No amoxicilli [place] 500 mg 500 mg n 500 mg [facility] capsule capsule capsule Urolog y TAKE 1 TAKE 1 TAKE 1 CAPSULE BY CAPSULE BY CAPSULE BY MOUTH 3 MOUTH 3 MOUTH 3 TIMES A DAY TIMES A DAY TIMES A FOR 3 DAYS. FOR 3 DAYS. DAY FOR 3 START A DAY START A DAY DAYS. PRIOR TO PRIOR TO START A DENTAL DENTAL DAY PRIOR APPOINTMENT APPOINTMENT TO DENTAL APPOINTMEN T aspirin 81 aspirin 81 No aspirin 81 [place] mg mg mg [facility] tablet,didi tablet,didi tablet,del Urology yed release yed release ayed release atorvastati atorvastati No atorvastat [place] n 20 mg n 20 mg in 20 mg [facility] tablet TAKE tablet TAKE tablet Urology 1 TABLET BY 1 TABLET BY TAKE 1 MOUTH EVERY MOUTH EVERY TABLET BY DAY DAY MOUTH EVERY DAY betamethaso betamethaso No betamethas [place] ne ne one [facility] dipropionat dipropionat dipropiona Urology e 0.05 % e 0.05 % te 0.05 % topical topical topical cream APPLY cream APPLY cream TO RASH ON TO RASH ON APPLY TO LEGS TWICE LEGS TWICE RASH ON A DAY FOR 2 A DAY FOR 2 LEGS TWICE WEEKS/MONTH WEEKS/MONTH A DAY FOR . . 2 WEEKS/VANDANA H. Bystolic 5 Bystolic 5 No Bystolic 5 [place] mg tablet mg tablet mg tablet [facility] Clenpiq 10 Clenpiq 10 No Clenpiq 10 Alexandre mg-3.5 mg-3.5 mg-3.5 [facility] gram-12 gram-12 gram-12 Urolog y gram/160 mL gram/160 mL gram/160 oral oral mL oral solution solution solution TAKE TAKE TAKE DIRECTED DIRECTED DIRECTED diclofenac diclofenac No diclofenac [place] 1 % topical 1 % topical 1 % M etro gel APPLY 1 gel APPLY 1 topical Urology GRAM TO GRAM TO gel APPLY AFFECTED AFFECTED 1 GRAM TO AREA TWICE AREA TWICE AFFECTED A DAY A DAY AREA TWICE NEEDED CAN NEEDED CAN A DAY APPLY UP TO APPLY UP TO NEEDED CAN 2 GRAMS IF 2 GRAMS IF APPLY UP NEEDED NEEDED TO 2 GRAMS IF NEEDED lisinopril lisinopril No lisinopril [place] 10 mg 10 mg 10 mg [facility] tablet TAKE tablet TAKE tablet Urology 1 TABLET BY 1 TABLET BY TAKE 1 MOUTH EVERY MOUTH EVERY TABLET BY DAY DAY MOUTH EVERY DAY meloxicam meloxicam No meloxicam [place] 15 mg 15 mg 15 mg [facility] tablet TAKE tablet TAKE tablet Urology 1 TABLET BY 1 TABLET BY TAKE 1 MOUTH EVERY MOUTH EVERY TABLET BY DAY WITH A DAY WITH A MOUTH MEAL MEAL EVERY DAY WITH A MEAL metoprolol metoprolol No metoprolol [place] succinate succinate succinate [facility] ER 25 mg ER 25 mg ER 25 mg Uro logy tablet,exte tablet,exte tablet,ext nded nded ended release 24 release 24 release 24 hr TAKE 1 hr TAKE 1 hr TAKE 1 TABLET BY TABLET BY TABLET BY MOUTH MOUTH MOUTH EVERYDAY AT EVERYDAY AT EVERYDAY BEDTIME BEDTIME AT BEDTIME prednisone prednisone No prednisone [place] 10 mg 10 mg 10 mg [facility] tablet TAKE tablet TAKE tablet Urology 1 TABLET BY 1 TABLET BY TAKE 1 MOUTH THREE MOUTH THREE TABLET BY TIMES A DAY TIMES A DAY MOUTH THREE TIMES A DAY tramadol 50 tramadol 50 No tramadol Alexandre mg tablet mg tablet 50 mg Metr o TAKE 1 TAKE 1 tablet Urology TABLET BY TABLET BY TAKE 1 MOUTH EVERY MOUTH EVERY TABLET BY 4 TO 6 4 TO 6 MOUTH HOURS HOURS EVERY 4 TO 6 HOURS Immunizations Ordered Immunization Filled Immunization Date Status Commen Source Name Name influenza, influenza, 2020-07-29 Completed [facility] injectable, injectable, 00:00:00 Urology quadrivalent quadrivalent influenza, influenza, 2020-07-29 Completed [facility] injectable, injectable, 00:00:00 Urology quadrivalent quadrivalent influenza, influenza, 2020-07-29 Completed [facility] injectable, injectable, 00:00:00 Urology quadrivalent quadrivalent influenza, influenza, 2020-07-29 Completed [facility] injectable, injectable, 00:00:00 Urology quadrivalent quadrivalent influenza, influenza, 2019-10-23 Completed [facility] injectable, injectable, 00:00:00 Urology quadrivalent quadrivalent influenza, influenza, 2019-10-23 Completed [facility] injectable, injectable, 00:00:00 Urology quadrivalent quadrivalent influenza, influenza, 2019-10-23 Completed [facility] injectable, injectable, 00:00:00 Urology quadrivalent quadrivalent influenza, influenza, 2019-10-23 Completed [facility] injectable, injectable, 00:00:00 Urology quadrivalent quadrivalent pneumococcal pneumococcal 2018-10-23 Completed [facility] tro polysaccharide PPV23 polysaccharide PPV23 00:00:00 Urology pneumococcal pneumococcal 2018-10-23 Completed [facility] tro polysaccharide PPV23 polysaccharide PPV23 00:00:00 Urology pneumococcal pneumococcal 2018-10-23 Completed [facility] tro polysaccharide PPV23 polysaccharide PPV23 00:00:00 Urology pneumococcal pneumococcal 2018-10-23 Completed [facility] tro polysaccharide PPV23 polysaccharide PPV23 00:00:00 Urology Vital Signs Vital Name Observation Time Observation Value Comments Source Body Weight 2022-03-16 00:00:00 180 [lb_av] [facility] Urology Height 2022-03-16 00:00:00 66 [in_i] [facility] BMI (Body Mass 2022-03-16 00:00:00 29.1 kg/m2 [place] [facility] Index) Urology Height 2021-08-31 00:00:00 66 [in_i] [facility]rology BMI (Body Mass 2021-08-31 00:00:00 29.1 kg/m2 [place] [facility] Index) Urology Body Weight 2021-08-31 00:00:00 180 [lb_av] [facility] Height 2021-02-16 00:00:00 66 [in_i] [facility] Urology BMI (Body Mass 2021-02-16 00:00:00 29.1 kg/m2 [place] [facility] Index) Urology Body Weight 2021-02-16 00:00:00 180 [lb_av] [facility] Urology Procedures Procedure Date / Time Performed Performing Clinician Jose Luis e Diagnostic Colonoscopy [facility]rology Plan of Care Planned Activity Planned Date Details Comments Source Diagnostic Test 2022-09-12 PSA, serum or Baldomero Met ro Pending 00:00:00 plasma [code = PSA, Urology serum or plasma] Diagnostic Test 2022-09-12 urinalysis, Baldomero Baptister o Pending 00:00:00 dipstick [code = Urology urinalysis, dipstick] Future Appointment 2023-03-11 [facility] [address] [facility] [address] [address]; , [place] [address] Encounters Start End Encounter Admission Attending Care Care Encounter Source Date/Time Date/Time Type Type Clinicians Facility Department ID 2022-09-23 2022-09-23 Outpatient Goldfarb_R [id number] [place] 00:00:00 00:00:00 [id number] [facility] 2022-09-13 2022-09-13 Outpatient Goldfarb_R [facility] U [id number] [place] 00:00:00 00:00:00 [id number] [facility] 2022-09-12 2022-09-12 Outpatient Goldfarb_R [facility] [id number] [place] 00:00:00 00:00:00 [id number] [facility] 2022-09-12 2022-09-12 Griffin [facility] [place] - [id number] [facility] 00:00:00 00:00:00 Baldomero Butcher MD: [address] [facility] [address], [place] [address] , Ph. 2022-09-10 2022-09-10 Outpatient Goldfarb_R [facility] [id number] [place] 00:00:00 00:00:00 [id number] [facility] 2022-03-17 2022-03-17 Outpatient Goldfarb_R [facility] U [id number] [place] 10:18:00 10:18:00 [id number] [facility] 2022-03-16 2022-03-16 Outpatient Goldfarb_R [facility] U [id number] [place] 11:48:00 11:48:00 [id number] [facility] 2022-03-16 2022-03-16 Outpatient Hadley, [facility] U [id number] 00:00:00 00:00:00 Griffin [id number] 2022-03-16 2022-03-16 Griffin [facility] [place] - [id number] [facility] 00:00:00 00:00:00 Baldomero Butcher MD: [address] [facility] [address], [place] [address] , Ph. 2021-09-01 2021-09-01 Outpatient Goldfarb_R [facility] U [id number] [place] 11:34:00 11:34:00 [id number] [facility] 2021-08-31 2021-08-31 Outpatient Goldfarb_R [facility] U [id number] [place] 11:42:00 11:42:00 [id number] [facility] 2021-08-31 2021-08-31 Outpatient Hadley, U U [id number] 00:00:00 00:00:00 Griffin [id number] 2021-08-31 2021-08-31 Grfifin [facility] [place] [facility] [id number] [facility] 00:[facility]:00 00:00:00 Baldomero Butcher MD: [address] [facility] [place] [address], [place] [address] , Ph. 2021-02-25 2021-02-25 Outpatient Goldfarb_R [facility] [id number] [place] 05:25:00 05:25:00 [id number] [facility] 2021-02-16 2021-02-16 Outpatient Goldfarb_R [facility] U [id number] [place] 01:37:00 01:37:00 [id number] [facility] 2021-02-16 2021-02-16 Outpatient Hadley, U [facility] [id number] 00:00:00 00:00:00 Griffin [id number] 2021-02-16 2021-02-16 Griffin [facility] [place] - [id number] [facility] 00:00:00 00:00:00 Baldomero Butcher MD: [address] [facility] [place] [address], [place] [address] , Ph. 2019-12-11 2019-12-11 Outpatient Eliel, [facility] [id number] [facility] 11:45:00 11:45:[address] [facility] Results Test Description Test Time Test Comments Results Result Comments Source Urinalysis macro (dipstick) panel - Urine 2022-09-12 10:44:0 0 Test Item Value Reference Range Interpretation Comme nts leukocytes (test code = negative neg leukocytes) urobilinogen (test code = 0.2 E.U./dL sm amt (.5-1mg/dL) urobilinogen) protein (test code = negative See_Comment [Autom ated message] The protein) system which ge nerated this result tra nsmitted reference range : <=150 mg/d. The refer ence range was not used to interpret this result as normal/abnormal . pH (test code = pH) 7.5 4.5-8 blood (test code = blood) negative See_Comment [ Automated message] The system which ge nerated this result tra nsmitted reference range : <=3 RBC. The reference r suzi was not used to int erpret this result as normal/abnormal . specific gravity (test code 1.020 1.005-1.025 = specific gravity) ketone (test code = ketone) negative none bilirubin (test code = negative neg bilirubin) glucose (test code = negative See_Comment [Autom ated message] The glucose) system which ge nerated this result tra nsmitted reference range : <=130 mg/d. The refer ence range was not used to interpret this result as normal/abnormal . color (test code = color) yellow yellow clarity (test code = clear clear or cloudy clarity) nitrite (test code = negative neg nitrite) [facility] Urology- XR KNEE 1 OR 2 V [id number] 15:14:00 Patient Name: MADHU GIL Unit No: [id number] EXAMS: CPT CODE: [id number] XR KNEE 1 [place] 2 [place] [id number] LEFT KNEE 2 VIEWS PORTABLE COMMENT: The patient is status post joint replacement which is articulating normally. at 1514 Reported and signed by: Tito Kent MD CC: Milad Julian MD Technologist: RUDDY BRINK (RT.R) Transcribed D/ (9464) [email or web address] [facility] NAME: MADHU GIL [address] PHYS: Milad Reyez MD : 1955 AGE: 64 SEX: M [place], [place] [address] LOC: Y.315 A PHONE #: [phone] EXAM DATE: 09/16/2019 STATUS: DIS IN FAX #: [phone] RAD #: D/C DT 09/17/2019 PAGE 1 Signed Report Patient Name: MADHU GIL Unit No: [id number] EXAMS: CPT CODE: [id number] XR KNEE 1 OR 2 [address] LT [id number] (Continued) Orig Print D/T: S: 09/17/2019 (1517) [facility] NAME: MADHU GIL [address] [facility] [address] PHYS: Milad Reyez MD : 1955 AGE: 64 SEX: M [place], [place] [address] LOC: Y.315 A PHONE #: [phone] EXAM DATE: 09/16/2019 STATUS: DIS IN FAX #: [phone] RAD #: D/C DT 09/17/2019 PAGE 2 Signed ReportBASIC METABOLIC PANEL 2019-09-17 06:51:00 Test Item Value Reference Range Interpretation Comments SODIUM (test code = 138 mmol/L 136-145 N NA) POTASSIUM (test code = 4.7 mmol/L 3.5-5.1 N K) CHLORIDE (test code = 101.0 mmol/L 98-107 N CL) CARBON DIOXIDE (test 25.1 mmol/L 21-32 N code = CO2) GLUCOSE (test code = 110 mg/dL 70-110 N GLU) BLOOD UREA NITROGEN 15 mg/dL 7-18 N (test code = BUN) GLOMERULAR FILTRATION 79.3 >60 Unit o f measure: RATE (test code = GFR) mL/mi n/1.73 [id number] Range:Healthy Adults >90 mL/min/1.73 m2 For Chronic Kidney Disease: Stage II Mild Decrease i n GFR 60-90 Stage III Moderate Decrea se in GFR 30-59 St age IV Severe Decre ase in GFR 15-29 St age V Kidney Failur e <15 CREATININE (test code 0.95 mg/dL 0.55-1.30 N = CREAT) CALCIUM (test code = 7.3 mg/dL 8.2-10.1 L CA) HGB [id number] 05:48:00 Test Item Value Reference Range Interpretation Comments HEMOGLOBIN (test code = HGB) 11.2 g/dL 12-16 L HEMATOCRIT (test code = HCT) 33.2 % 37-47 L COMPREHENSIVE METABOLIC [id number] 13:03:00 Test Item Value Reference Range Interpretation [...] RATE (test code = GFR) mL/mi n/1.73 [id number] Range:Healthy Adults >90 mL/min/1.73 m2 For Chronic Kidney Disease: Stage II Mild Decrease i n GFR 60-90 Stage III Moderate Decrea se in GFR 30-59 St age IV Severe Decre ase in GFR 15-29 St age V Kidney Failur e <15 CREATININE (test code 0.84 mg/dL 0.55-1.30 [...] TOTAL (test code = ALKP) CBC W/AUTO [id number] 12:43:00 Test Item Value Reference Range Interpretation [...]
--- NOTE | 2022-10-13 17:28 | RAD REPORT ---
EXAM DESCRIPTION: RAD - Tib Fib Right - 10/13/2022 5:18 pm CLINICAL HISTORY: fall from ladder Fall, trauma, pain COMPARISON: No comparisons FINDINGS: Total knee arthroplasty is noted. No acute fracture or dislocation. Large plantar calcanea l spur. Tiny posterior calcaneal spur.
[2022-10-13] MEDS ORDERED: HYDROCODONE/APAP 7.5/325 MG TAB ONE (17:37)
[2022-10-13] MEDS ORDERED: IBUPROFEN 400 MG TAB ONE (17:37)
--- NOTE | 2022-10-13 17:46 | ER ---
Nurse's Notes [facility] Name: Fady Mcdowell Age: 67 yrs Sex: Male : 1955 Arrival Date: 10/13/2022 Time: 15:44 Bed 20 Private MD: Ladan Logan C Diagnosis: Pain in right lower leg Presentation: 10/13 15:49 Chief complaint: Patient states: He fell 3 ft from a ladder and landed on the ladder kb3 rung awkwardly causing pain in the right calf at approximately 1200 today. Pt denies pain in right foot, ankle and knee. Coronavirus screen: Vaccine status: Patient reports receiving the 2nd dose of the covid vaccine. Client denies travel out of the [place] in the last 14 days. Ebola Screen: Patient negative for fever greater than or equal to 101.5 degrees Fahrenheit, and additional compatible Ebola Virus Disease symptoms Patient denies exposure to infectious person. Patient denies travel to an Ebola-affected area in the 21 days before illness onset. No symptoms or risks identified at this time. Initial Sepsis Screen: Does the patient meet any 2 criteria? No. Patient's initial sepsis screen is negative. Does the patient have a suspected source of infection? No. Patient's initial sepsis screen is negative. Risk Assessment: Do you want to hurt yourself or someone else? Patient reports no desire to harm self or others. Onset of symptoms was October 13, 2022 at 12:00. 15:49 Method Of Arrival: Ambulatory 3 15:49 Acuity: KATHARINE 3 kb3 Triage Assessment: 15:52 General: Appears in no apparent distress. Behavior is calm, cooperative. Pain: kb3 Complains of pain in right calf Pain does not radiate. Pain currently is 7 out of 10 on a pain scale. 16:23 Injury Description: no obvious injury or deformity noted to the right leg. some mild kc6 swelling present. Historical: - Allergies: 15:52 No Known Allergies; kb3 - PMHx: 15:52 Hypercholesterolemia; Hypertensive disorder; kb3 - PSHx: 15:52 Bilateral knee replacement; kb3 - Immunization history:: Adult Immunizations up to date, Client reports receiving the 2nd dose of the Covid vaccine. - Social history:: Smoking status: Patient denies any tobacco usage or history of. Screenin:19 [facility] ED Fall Risk Assessment (Adult) History of falling in the last 3 months, kc6 including since admission Yes- single mechanical fall (1 pt) Confusion or Disorientation No (0 pts) Intoxicated or Sedated No (0 pts) Impaired Gait No (0 pts) Mobility Assist Device Used No (0 pt) Altered Elimination No (0 pt) Score/Fall Risk Level 0 - 2 = Low Risk. Abuse screen: Denies threats or abuse. Denies injuries from another. Nutritional screening: No deficits noted. Tuberculosis screening: No symptoms or risk factors identified. Fall Risk Fall in past 12 months (25 points). No secondary diagnosis (0 pts). No IV (0 pts). Ambulatory Aid- None/Bed Rest/Nurse Assist (0 pts). Gait- Normal/Bed Rest/Wheelchair (0 pts) Mental Status- Oriented to own ability (0 pts). Total Rapp Fall Scale indicates No Risk (0-24 pts). Assessment: 16:20 General: Appears in no apparent distress. comfortable, Behavior is calm, cooperative, kc6 appropriate for age. Pain: Complains of pain in right leg and right calf Pain does not radiate. Pain currently is 7 out of 10 on a pain scale. Quality of pain is described as dull, Pain began suddenly, Is continuous, Alleviated by medications, Aggravated by plantar felxion Also complains of no other associated symptoms. Neuro: Leo Agitation-Sedation Scale (RASS): 0 - Alert and Calm Level of Consciousness is awake, alert, obeys commands, Oriented to person, place, time, situation, Appropriate for age. Cardiovascular: Heart tones S1 S2 present Capillary refill < 3 seconds. Respiratory: Airway is patent Trachea midline Respiratory effort is even, unlabored, Respiratory pattern is regular, symmetrical, Breath sounds are clear bilaterally. GI: No signs and/or symptoms were reported involving the gastrointestinal system. : No signs and/or symptoms were reported regarding the genitourinary system. EENT: No signs and/or symptoms were reported regarding the EENT system. Derm: No signs and/or symptoms reported regarding the dermatologic system. Skin is intact, Skin is pink, warm \T\ dry. Musculoskeletal: Circulation, motion, and sensation intact. Capillary refill < 3 seconds, Range of motion: intact in all extremities, Swelling present in right leg and right calf. 17:16 Reassessment: Patient appears in no apparent distress at this time. No changes from kc6 previously documented assessment. Patient and/or family updated on plan of care and expected duration. Pain level reassessed. Patient is alert, oriented x 3, equal unlabored respirations, skin warm/dry/pink. Vital Signs: 15:49 Weight 83.91 kg; Height 5 ft. 6 in. (167.64 cm); Pain 7/10; kb3 16:22 BP 137 / 85; Pulse 88; Resp 18 S; Pulse Ox 98% on R/A; Pain 7/10; kc6 17:16 BP 126 / 77; Pulse 90; Resp 18 S; Pulse Ox 98% on R/A; kc6 17:53 BP 130 / 76; Pulse 85; Resp 15 S; Pulse Ox 97% on R/A; Pain 6/10; kc6 15:49 Body Mass Index 29.86 (83.91 kg, 167.64 cm) kb3 ED Course: 15:44 Patient arrived in ED. rg4 15:45 Ladan Logan MD is Private Physician. rg4 15:46 Sai Galvan PA is PHCP. cp 15:46 Michael Bonilla MD is Attending Physician. cp 15:51 Triage completed. kb3 15:52 Arm band placed on right wrist. kb3 15:59 Ana Prieto RN is Primary Nurse. kc6 16:22 Patient has correct armband on for positive identification. Placed in gown. Bed in low kc6 position. Call light in reach. Side rails up X2. 17:19 XRAY Tib Fib RIGHT In Process Unspecified. EDMS Administered Medications: 17:39 Drug: Ibuprofen 800 mg Route: PO; kc6 17:54 Follow up: Response: No adverse reaction; Pain is decreased kc6 17:39 Drug: Hydrocodone-Acetaminophen (7.5 mg-325 mg) 1 tabs Route: PO; kc6 17:54 Follow up: Response: No adverse reaction; Pain is decreased kc6 Outcome: 17:45 Discharge ordered by MD. cp 17:56 Patient left the ED. kc6 Signatures: Dispatcher [employer] EDMS Sai Galvan PA PA cp Garcia, Rubi rg4 Ana Prieto RN RN kc6 Rut Teague RN RN kb3
--- NOTE | 2022-10-13 17:46 | EDPHYS ---
Physician Documentation [facility] Name: Fady Mcdowell Age: 67 yrs Sex: Male : 1955 Arrival Date: 10/13/2022 Time: 15:44 Bed 20 Private MD: Ladan Logan C ED Physician Michael Bonilla HPI: 10/13 16:20 This 67 yrs old Male presents to ER via Ambulatory with complaints of Leg cp Injury. 16:20 The patient presents with an injury, pain, that is acute. The complaints affect the cp right calf. Patient reports he was descending ladder and about 3 feet off ground, ladder gave way causing him to fall to ground. Patient only complains of pain to back of right lower leg. Historical: - Allergies: 15:52 No Known Allergies; kb3 - PMHx: 15:52 Hypercholesterolemia; Hypertensive disorder; kb3 - PSHx: 15:52 Bilateral knee replacement; kb3 - Immunization history:: Adult Immunizations up to date, Client reports receiving the 2nd dose of the Covid vaccine. - Social history:: Smoking status: Patient denies any tobacco usage or history of. ROS: 16:25 Constitutional: Negative for body aches, chills, fever, poor PO intake. cp 16:25 Neck: Negative for pain with movement, pain at rest, stiffness. cp 16:25 Cardiovascular: Negative for chest pain, palpitations. 16:25 Respiratory: Negative for cough, shortness of breath, wheezing. 16:25 Abdomen/GI: Negative for abdominal pain, nausea, vomiting, and diarrhea. 16:25 Back: Negative for pain at rest, pain with movement. 16:25 MS/extremity: Positive for pain, of the right calf, Negative for decreased range of motion, deformity, paresthesias. 16:25 Neuro: Negative for altered mental status, headache, loss of consciousness, syncope, weakness. 16:25 All other systems are negative. Exam: 16:30 Constitutional: The patient appears in no acute distress, alert, awake, cp non-diaphoretic, non-toxic, well developed, well nourished. 16:30 Head/Face: Normocephalic, atraumatic. cp 16:30 Neck: ROM/movement: is normal, is supple, without pain, no range of motions limitations. 16:30 Chest/axilla: Inspection: normal, Palpation: is normal, no crepitus, no tenderness. 16:30 Cardiovascular: Rate: normal. 16:30 Respiratory: the patient does not display signs of respiratory distress, Respirations: normal, no use of accessory muscles, no retractions. 16:30 Abdomen/GI: Inspection: abdomen appears normal, Palpation: abdomen is soft and non-tender, in all quadrants. 16:30 Back: pain, is absent, ROM is normal. 16:30 Musculoskeletal/extremity: Extremities: noted in the right lower calf: pain, tenderness, mild swelling, There is no evidence of right Achilles tendon rupture, ROM: full active range of motion, in the right ankle, Pulses: noted to be 2+ in the right dorsalis pedis artery, the right lower leg Sensation intact. 16:30 Neuro: Orientation: to person, place \T\ time. Mentation: is normal, Motor: moves all fours, strength is normal. Vital Signs: 15:49 Weight 83.91 kg; Height 5 ft. 6 in. (167.64 cm); Pain 7/10; kb3 16:22 BP 137 / 85; Pulse 88; Resp 18 S; Pulse Ox 98% on R/A; Pain 7/10; kc6 17:16 BP 126 / 77; Pulse 90; Resp 18 S; Pulse Ox 98% on R/A; kc6 17:53 BP 130 / 76; Pulse 85; Resp 15 S; Pulse Ox 97% on R/A; Pain 6/10; kc6 15:49 Body Mass Index 29.86 (83.91 kg, 167.64 cm) kb3 MDM: 15:58 Patient medically screened. cp 17:00 Differential diagnosis: dislocation, open fracture, closed fracture, Achilles tendon cp rupture. 17:44 Data reviewed: vital signs, nurses notes, radiologic studies, plain films. cp 17:44 Counseling: I had a detailed discussion with the patient and/or guardian regarding: the cp historical points, exam findings, and any diagnostic results supporting the discharge/admit diagnosis, radiology results, to return to the emergency department if symptoms worsen or persist or if there are any questions or concerns that arise at home. Response to treatment: the patient's symptoms have markedly improved after treatment, and as a result, I will discharge patient. 10/13 16:14 Order name: XRAY Tib Fib RIGHT; Complete Time: 17:30 cp 10/13 17:31 Order name: Juan Diego Wrap; Complete Time: 17:39 cp Administered Medications: 17:39 Drug: Ibuprofen 800 mg Route: PO; kc6 17:54 Follow up: Response: No adverse reaction; Pain is decreased kc6 17:39 Drug: Hydrocodone-Acetaminophen (7.5 mg-325 mg) 1 tabs Route: PO; kc6 17:54 Follow up: Response: No adverse reaction; Pain is decreased kc6 Disposition Summary: 10/13/22 17:45 Discharge Ordered Location: Home cp Problem: new cp Symptoms: have improved cp Condition: Stable cp Diagnosis - Pain in right lower leg cp Followup: cp - With: Private Physician - When: 1 week - Reason: Recheck today's complaints Discharge Instructions: - Discharge Summary Sheet cp - Muscle Strain cp - RICE Therapy for Routine Care of Injuries cp Forms: - Medication Reconciliation Form cp - Thank You Letter cp - Antibiotic Education cp - Prescription Opioid Use cp Prescriptions: - Diclofenac Sodium 75 mg Oral Tablet Sustained Release - take 1 tablet by ORAL route 2 times per day; 30 tablet; Refills: 0, Product cp Selection Permitted Signatures: Dispatcher [employer] EDSai Monsivais PA PA cp Ana Prieto RN RN kc6 Rut Teague, RN RN kb3
[2022-10-13 18:04] VITALS: BP 130/76; O2SAT 97
== END 2022-10-13 17:56 | disposition home or self-care (01) ==
LOC: ER 15:42
DX: M79.661 Pain in right lower leg (principal); I10 Essential (primary) hypertension; Z96.653 Presence of artificial knee joint, bilateral
CPT/HCPCS: 99283

== ENCOUNTER 2022-10-16 11:32 | Emergency (ER) | payer OTHER ==
--- OUTSIDE RECORDS SUMMARY | 2022-10-16 11:41 | XMS REPORT | Continuity of Care Document ---
:1955 Author Organization [facility] t Address [address] [place] [address] Care Team Providers Name Role Phone Yesenia Attending Clinician Unavailable Oumar Attending Clinician Unavailable Griffin Butcher Attending Clinician [phone] Milad Julian Attending Clinician Unavailable Yesenia Admitting Clinician Unavailable Oumar Admitting Clinician Unavailable Physician, No Primary or Family Admitting Clinician Unavaila ble Payers Payer Name Policy Type Policy Number Effective Date Expiration Date Dena JASMINE (MEDICARE [id number] 2019 REPLACEMENT PPO) 00:00:00 Problems Condition Condition Condition Status Onset Resolution Last Treating Co mments Source Name Details Category Date Date Treatment Clinician Date Hypertensi Hypertensi Problem Active 2015-10 [place] ve ve 2-27 [facility] disorder Disorder 00:00: Urolog y 00 Raised Raised Problem Active 2015-10 [place] prostate Prostate 12-25 [facility] specific Specific 00:00: Urolog y antigen Antigen 00 Lower Lower Problem Active 2015-10 [facility] urinary Urinary -27 [facility] tract Tract 00:00: Urology symptoms Symptoms 00 due to Due to benign Benign prostatic Prostatic hypertroph Hypertroph y y Allergies, Adverse Reactions, Alerts Allergy Allergy Status Severity Reaction(s) Onset Inactive Treating Comm ents Source Name Type Date Date Clinician No Known DA Active U 2017-10 [facility]ie 0 [place] [facility] 00:[facility] No Known DA Active U 2017-10 [facility] Drug 0-30 [place] Allergie 00:00: Orthope s 00 dic Hosp[facility] pollen DA Active SV SNEEZING, 2017-10 [facility] extracts WATERY EYES 0-30 [place] [facility] 00:00: Orthope 00 dic Hospita [facility] No Known DA Active U 2017-10 [facility] Drug 0-30 [place] Allergie 00:00: Bed[place] s 00 [facility] pollen DA Active SV 2017-10 [facility] extracts 0-30 [place] 00:00: Bedoya 00 [facility] Social History Smoking Status Start Date Stop Date Source Never Smoker [place] [facility] Medications Ordered Filled Start Stop Current Ordering Indication Dosage Frequency Signature Comments Components Source Medication Medication Date Date Medication? Clinician (SIG) Name Name alendronate alendronate No alendronat [facility] 70 mg 70 mg e 70 mg [facility] tablet TAKE tablet TAKE tablet Urology 1 TABLET BY 1 TABLET BY TAKE 1 MOUTH ONE MOUTH ONE TABLET BY TIME PER TIME PER MOUTH ONE WEEK WEEK TIME PER WEEK amoxicillin amoxicillin No amoxicilli [facility] 500 mg 500 mg n 500 mg [...] DENTAL APPOINTMEN T amoxicillin amoxicillin No amoxicilli [facility] 500 500 n 500 [facility] mg-potassiu mg-potassiu mg-potassi Urology m m um clavulanate clavulanate clavulanat 125 mg 125 mg e 125 mg tablet TAKE tablet TAKE tablet ONE TABLET ONE TABLET TAKE ONE BY MOUTH BY MOUTH TABLET BY EVERY EVERY MOUTH TWELVE TWELVE EVERY HOURS UNTIL HOURS UNTIL TWELVE GONE GONE HOURS UNTIL GONE amoxicillin amoxicillin No amoxicilli [facility] [phone] n 875 [facility] mg-potassiu mg-potassiu [...] release ayed release atorvastati atorvastati No atorvastat [facility] n 20 mg n 20 mg in 20 mg [facility] tablet TAKE tablet TAKE tablet Urology 1 TABLET BY 1 TABLET BY TAKE 1 MOUTH EVERY MOUTH EVERY TABLET BY DAY DAY MOUTH EVERY DAY betamethaso betamethaso No betamethas [facility] ne ne one [facility] dipropionat dipropionat dipropiona [...] tablet [facility] chlorhexidi chlorhexidi No chlorhexid [facility] ne ne ine [facility] gluconate gluconate gluconate [...] Clenpiq 10 Clenpiq 10 No Clenpiq 10 [place] mg-3.5 mg-3.5 mg-3.5 [facility] gram-12 gram-12 gram-12 Urolog y gram/160 mL gram/160 mL gram/160 oral oral mL oral solution solution solution TAKE TAKE TAKE DIRECTED DIRECTED DIRECTED diclofenac diclofenac No diclofenac [facility] 1 % topical 1 % topical 1 [...] GRAMS IF NEEDED lisinopril lisinopril No lisinopril [facility] 10 mg 10 mg 10 mg [facility] tablet TAKE tablet TAKE tablet Urology 1 TABLET BY 1 TABLET BY TAKE 1 MOUTH EVERY MOUTH EVERY TABLET BY DAY DAY MOUTH EVERY DAY meloxicam meloxicam No meloxicam [facility] 15 mg 15 mg 15 mg [facility] tablet TAKE tablet TAKE tablet Urology 1 TABLET BY 1 TABLET BY TAKE 1 MOUTH EVERY MOUTH EVERY TABLET BY DAY WITH A DAY WITH A MOUTH MEAL MEAL EVERY DAY WITH A MEAL metoprolol metoprolol No metoprolol [facility] succinate succinate succinate [facility] ER 25 mg ER 25 mg ER 25 mg Uro logy tablet,exte tablet,exte tablet,ext nded nded ended release 24 release 24 release 24 hr TAKE 1 hr TAKE 1 hr TAKE 1 TABLET BY TABLET BY TABLET BY MOUTH MOUTH MOUTH EVERYDAY AT EVERYDAY AT EVERYDAY BEDTIME BEDTIME AT BEDTIME prednisone prednisone No prednisone [facility] 10 mg 10 mg 10 mg [facility] tablet tablet tablet Urology PLEASE SEE PLEASE SEE PLEASE SEE ATTACHED ATTACHED ATTACHED FOR FOR FOR DETAILED DETAILED DETAILED DIRECTIONS DIRECTIONS DIRECTIONS tramadol 50 tramadol 50 No tramadol [facility] mg tablet mg tablet 50 mg Metr o TAKE 1 TAKE 1 tablet Urology TABLET BY TABLET BY TAKE 1 MOUTH EVERY MOUTH EVERY TABLET BY 4 TO 6 4 TO 6 MOUTH HOURS HOURS EVERY 4 TO 6 HOURS alendronate alendronate No alendronat [facility] 70 mg 70 mg e 70 mg [facility] tablet TAKE tablet TAKE tablet Urology 1 TABLET BY 1 TABLET BY TAKE 1 MOUTH ONE MOUTH ONE TABLET BY TIME PER TIME PER MOUTH ONE WEEK WEEK TIME PER WEEK amoxicillin amoxicillin No amoxicilli [facility] 500 mg 500 mg n 500 mg [facility] capsule capsule capsule Urolog y TAKE 1 TAKE 1 TAKE 1 CAPSULE BY CAPSULE BY CAPSULE BY MOUTH THREE MOUTH THREE MOUTH TIMES A DAY TIMES A DAY THREE X 3 DAYS X 3 DAYS TIMES A START A DAY START A DAY DAY X 3 PRIOR TO PRIOR TO DAYS START DENTAL DENTAL A DAY APPOINTMENT APPOINTMENT PRIOR TO DENTAL APPOINTMEN T aspirin 81 aspirin 81 No aspirin 81 [facility] mg mg mg [facility] tablet,didi tablet,didi tablet,del Urology yed release yed release ayed release atorvastati atorvastati No atorvastat [facility] n 20 mg n 20 mg in 20 mg [facility] tablet TAKE tablet TAKE tablet Urology 1 TABLET BY 1 TABLET BY TAKE 1 MOUTH EVERY MOUTH EVERY TABLET BY DAY DAY MOUTH EVERY DAY Bystolic 5 Bystolic 5 No Bystolic 5 [place] mg tablet mg tablet mg tablet [facility] Urology lisinopril lisinopril No lisinopril [facility] 10 mg 10 mg 10 mg [facility] tablet TAKE tablet TAKE tablet Urology 1 TABLET BY 1 TABLET BY TAKE 1 MOUTH EVERY MOUTH EVERY TABLET BY DAY DAY MOUTH EVERY DAY metoprolol metoprolol No metoprolol [facility] succinate succinate succinate [facility] ER 25 mg [...] TO 6 HOURS alendronate alendronate No alendronat [facility] 70 mg 70 mg e 70 mg [facility] tablet TAKE tablet TAKE tablet Urology 1 TABLET BY 1 TABLET BY TAKE 1 MOUTH ONE MOUTH ONE TABLET BY TIME PER TIME PER MOUTH ONE WEEK WEEK TIME PER WEEK amoxicillin amoxicillin No amoxicilli [facility] 500 mg 500 mg n 500 mg [facility] capsule capsule capsule Urolog y TAKE 1 TAKE 1 TAKE 1 CAPSULE BY CAPSULE BY CAPSULE BY MOUTH THREE MOUTH THREE MOUTH TIMES A DAY TIMES A DAY THREE X 3 DAYS X 3 DAYS TIMES A START A DAY START A DAY DAY X 3 PRIOR TO PRIOR TO DAYS START DENTAL DENTAL A DAY APPOINTMENT APPOINTMENT PRIOR TO DENTAL APPOINTMEN T aspirin 81 aspirin 81 No aspirin 81 [facility] mg mg mg [facility] tablet,didi tablet,didi tablet,del Urology yed release yed release ayed release atorvastati atorvastati No atorvastat [facility] n 20 mg n 20 mg in 20 mg [facility] tablet TAKE tablet TAKE tablet Urology 1 TABLET BY 1 TABLET BY TAKE 1 MOUTH EVERY MOUTH EVERY TABLET BY DAY DAY MOUTH EVERY DAY Bystolic 5 Bystolic 5 No Bystolic 5 [place] mg tablet mg tablet mg tablet [facility] Urology lisinopril lisinopril No lisinopril [facility] 10 mg 10 mg 10 mg [facility] tablet TAKE tablet TAKE tablet Urology 1 TABLET BY 1 TABLET BY TAKE 1 MOUTH EVERY MOUTH EVERY TABLET BY DAY DAY MOUTH EVERY DAY metoprolol metoprolol No metoprolol [facility] succinate succinate succinate [facility] ER 25 mg ER 25 mg ER 25 mg Uro logy tablet,exte tablet,exte tablet,ext nded nded ended release 24 release 24 release 24 hr TAKE 1 hr TAKE 1 hr TAKE 1 TABLET BY TABLET BY TABLET BY MOUTH MOUTH MOUTH EVERYDAY AT EVERYDAY AT EVERYDAY BEDTIME BEDTIME AT BEDTIME tramadol 50 tramadol 50 No tramadol [facility] mg tablet mg tablet 50 mg Metr o TAKE 1 TAKE 1 tablet Urology TABLET BY TABLET BY TAKE 1 MOUTH EVERY MOUTH EVERY TABLET BY 4 TO 6 4 TO 6 MOUTH HOURS HOURS EVERY 4 TO 6 HOURS alendronate alendronate No alendronat [facility] 70 mg 70 mg e 70 mg [facility] tablet TAKE tablet TAKE tablet Urology 1 TABLET BY 1 TABLET BY TAKE 1 MOUTH ONCE MOUTH ONCE TABLET BY A WEEK A WEEK MOUTH ONCE A WEEK amoxicillin amoxicillin No amoxicilli [facility] 500 mg 500 mg n 500 mg [...] aspirin 81 aspirin 81 No aspirin 81 [facility] mg mg mg [facility] tablet,didi tablet,didi tablet,del Urology yed release yed release ayed release atorvastati atorvastati No atorvastat [facility] n 20 mg n 20 mg in 20 mg [facility] tablet TAKE tablet TAKE tablet Urology 1 TABLET BY 1 TABLET BY TAKE 1 MOUTH EVERY MOUTH EVERY TABLET BY DAY DAY MOUTH EVERY DAY betamethaso betamethaso No betamethas [facility] ne ne one [facility] dipropionat dipropionat dipropiona [...] Bystolic 5 Bystolic 5 No Bystolic 5 [facility] mg tablet mg tablet mg tablet [facility] Clenpiq 10 Clenpiq 10 No Clenpiq 10 [facility] mg-3.5 mg-3.5 mg-3.5 [facility] gram-12 gram-12 gram-12 Urolog y gram/160 mL gram/160 mL gram/160 oral oral mL oral solution solution solution TAKE TAKE TAKE DIRECTED DIRECTED DIRECTED diclofenac diclofenac No diclofenac [facility] 1 % topical 1 % topical 1 [...] GRAMS IF NEEDED lisinopril lisinopril No lisinopril [facility] 10 mg 10 mg 10 mg [facility] tablet TAKE tablet TAKE tablet Urology 1 TABLET BY 1 TABLET BY TAKE 1 MOUTH EVERY MOUTH EVERY TABLET BY DAY DAY MOUTH EVERY DAY meloxicam meloxicam No meloxicam [facility] 15 mg 15 mg 15 mg [facility] tablet TAKE tablet TAKE tablet Urology 1 TABLET BY 1 TABLET BY TAKE 1 MOUTH EVERY MOUTH EVERY TABLET BY DAY WITH A DAY WITH A MOUTH MEAL MEAL EVERY DAY WITH A MEAL metoprolol metoprolol No metoprolol [facility] succinate succinate succinate [facility] ER 25 mg ER 25 mg ER 25 mg Uro logy tablet,exte tablet,exte tablet,ext nded nded ended release 24 release 24 release 24 hr TAKE 1 hr TAKE 1 hr TAKE 1 TABLET BY TABLET BY TABLET BY MOUTH MOUTH MOUTH EVERYDAY AT EVERYDAY AT EVERYDAY BEDTIME BEDTIME AT BEDTIME prednisone prednisone No prednisone [facility] 10 mg 10 mg 10 mg [facility] [...] Source Name Name influenza, influenza, 2020-07-29 Completed [facility] injectable, injectable, 00:00:00 Urology quadrivalent quadrivalent influenza, influenza, 2020-07-29 Completed [facility] injectable, injectable, 00:00:00 Urology quadrivalent quadrivalent influenza, influenza, 2020-07-29 Completed [facility] injectable, injectable, 00:00:00 Urology quadrivalent quadrivalent influenza, influenza, 2020-07-29 Completed [facility] injectable, injectable, 00:00:00 Urology quadrivalent quadrivalent influenza, influenza, 2019-10-23 Completed [facility] injectable, injectable, 00:00:00 Urology quadrivalent quadrivalent influenza, influenza, 2019-10-23 Completed [facility] injectable, injectable, 00:00:00 Urology quadrivalent quadrivalent influenza, influenza, 2019-10-23 Completed [facility] injectable, injectable, 00:00:00 Urology quadrivalent quadrivalent influenza, influenza, 2019-10-23 Completed [facility] injectable, injectable, 00:00:00 Urology quadrivalent quadrivalent pneumococcal pneumococcal 2018-10-[address] [facility] tro polysaccharide PPV23 polysaccharide PPV23 00:00:00 Urology pneumococcal pneumococcal 2018-10-[address] [facility] tro polysaccharide PPV23 polysaccharide PPV23 00:00:00 Urology pneumococcal pneumococcal 2018-10-[address] [facility] tro polysaccharide PPV23 polysaccharide PPV23 00:00:00 Urology pneumococcal pneumococcal 2018-10-[address] [facility] tro polysaccharide PPV23 polysaccharide PPV23 00:00:00 Urology Vital Signs Vital Name Observation Time Observation Value Comments Source BMI (Body Mass 2022-03-16 00:00:00 29.1 kg/m2 [place] [facility] Index) [facility] Body Weight 2022-03-16 00:00:00 180 [lb_av] [facility] Urology Height 2022-03-16 00:00:00 66 [in_i] [facility] Urology Height 2021-08-31 00:00:00 66 [in_i] [facility] Urology BMI (Body Mass 2021-08-31 00:00:00 29.1 kg/m2 [place] [facility] Index) Urology Body Weight 2021-08-31 00:00:00 180 [lb_av] [facility] Urology Height 2021-02-16 00:00:00 66 [in_i] [facility] Urology BMI (Body Mass 2021-02-16 00:00:00 29.1 kg/m2 [place] [facility] Index) Urology Body Weight 2021-02-16 00:00:00 180 [lb_av] [facility] Urology Procedures Procedure Date / Time Performed Performing Clinician Jose Luis e Diagnostic Colonoscopy [facility] Urology Plan of Care Planned Activity Planned Date Details Comments Source Diagnostic Test 2022-09-12 PSA, serum or [facility]re Met ro Pending 00:00:00 plasma [code = PSA, Urology serum or plasma] Diagnostic Test 2022-09-12 urinalysis, Baldomero villaseñor Pending 00:00:00 dipstick [code = Urology urinalysis, dipstick] Future Appointment 2023-03-11 Srikanth Holloway 00:00:00 [address] [facility] [address]; , [place] [address] Encounters Start End Encounter Admission Attending Care Care Encounter Source Date/Time Date/Time Type Type Clinicians Facility Department ID 2022-10-16 2022-10-16 Outpatient FOG_Burke_R AOSM AOSM [id number] [place] 00:00:00 00:00:00 Yuliana [id number] Ortho pe dic [facility] e 2022-09-23 2022-09-23 Outpatient Goldfarb_R HMU U [id number] [facility] 00:00:00 00:00:00 [id number] [facility] 2022-09-13 2022-09-13 Outpatient Goldfarb_R HMU HMU [id number] [facility] [place] 00:00:00 00:00:00 [id number] [facility] 2022-09-12 2022-09-12 Outpatient Goldfarb_R HMU HMU [id number] [id number] [facility] 00:00:00 00:00:00 [id number] [facility] 2022-09-12 2022-09-12 [facility] [place] - [id number] H renita 00:00:00 00:00:00 Baldomero Butcher MD: [id number] [facility] [address], [place] [address] , Ph. 2022-09-10 2022-09-10 Outpatient Goldfarb_R HMU HMU [id number] [facility] 00:00:00 00:00:00 [id number] [facility] 2022-03-17 2022-03-17 Outpatient Goldfarb_R HMU HMU [id number] [facility] 10:18:00 10:18:00 [id number] [facility] 2022-03-16 2022-03-16 Outpatient Goldfarb_R HMU HMU [id number] [facility] 11:48:00 11:48:00 [id number] [facility] 2022-03-16 2022-03-16 [place] [id number] 00:00:00 00:00:00 Griffin [id number] 2022-03-16 2022-03-16 [facility] [place] - [id number] [facility] 00:00:00 00:00:00 Baldomero Butcher MD: [id number] [facility] [address], [place] [address] , Ph. 2021-09-01 2021-09-01 Outpatient Goldfarb_R HMU HMU [id number] [facility] 11:34:00 11:34:00 [id number] [facility] 2021-08-31 2021-08-31 Outpatient Goldfarb_R HMU HMU [id number] [facility] 11:42:00 11:42:00 [id number] [facility] 2021-08-31 2021-08-31 Outpatient [place], U U [id number] 00:00:00 00:00:00 Griffin [id number] 2021-08-31 2021-08-31 [facility] [place] - [id number] [facility] 00:00:00 00:00:00 Baldomero Butcher MD: [id number] [facility] [address], [place] [address] , Ph. 2021-02-25 2021-02-25 Outpatient Goldfarb_R HMU U 2211 [id number] [facility] 05:25:00 05:25:00 [id number] [facility] 2021-02-16 2021-02-16 Outpatient Goldfarb_R HMU U [id number] [facility] 01:37:00 01:37:00 [id number] [facility] 2021-02-16 2021-02-16 Outpatient [place], U U [id number] 00:00:00 00:00:00 Griffin [id number] 2021-02-16 2021-02-16 [facility] [place] - [id number] [facility] 00:00:00 00:00:00 Baldomero Butcher MD: [address] [place] [address] [facility] [address], [place] [address] , Ph. 2019-12-11 2019-12-11 Outpatient TESS JulianTO SURG [id number] [facility] 11:45:00 11:45:00 Milad Mukherjee [facility] Results Test Description Test Time Test Comments [...] nitrite (test code = negative neg nitrite) [facility] Urology- XR KNEE 1 OR 2 V [id number] 15:14:00 Patient Name: MADHU GIL Unit No: [id number] EXAMS: CPT CODE: [id number] XR KNEE 1 OR 2 [place] [address] LEFT KNEE 2 VIEWS PORTABLE COMMENT: The patient is status post joint replacement which is articulating normally. at 1514 Reported and signed by: Tito Kent MD CC: Milad Julian MD Technologist: RUDDY BRINK (RT.R) T pete D/ (1514) JimboL [facility] NAME: MADHU GIL [address] [place] [address] PHYS: Milad Reyez MD : 1955 AGE: 64 SEX: M [place], [place] [address] LOC: Y.315 A PHONE #: [phone] EXAM DATE: 09/16/2019 STATUS: DIS IN FAX #: [phone] RAD #: D/C DT 09/17/2019 PAGE 1 Signed Report Patient Name: MADHU GIL Unit No: [id number] EXAMS: CPT CODE: [id number] XR KNEE 1 [place] 2 [place] [address] (Continued) Orig Print D/T: S: 09/17/2019 (1517) [facility] NAME: GIL,[address] PHYS: Milad Reyez MD : 1955 AGE: 64 SEX: M [place], [place] [address] LOC: Y.315 A PHONE #: [phone] EXAM DATE: 09/16/2019 STATUS: DIS IN FAX #: [phone] RAD #: D/C DT 09/17/2019PAGE 2 Signed ReportBASIC METABOLIC PANEL 2019-09-17 06:51:00 [...] RATE (test code = GFR) mL/mi n/1.73 [id number] Range:Healthy Adults >90 mL/min/1.73 m2 For Chronic Kidney Disease: Stage II Mild Decrease i n GFR 60-90 Stage III Moderate Decrea se in GFR 30-59 St age IV Severe Decre ase in GFR 15-29 St age V Kidney Failu re <15 CREATININE (test code 0.95 mg/dL 0.55-1.30 N = CREAT) CALCIUM (test code = 7.3 mg/dL 8.2-10.1 L CA) HGB [id number] 05:48:00 Test Item Value Reference Range Interpretation Comments HEMOGLOBIN (test code = HGB) 11.2 g/dL 12-16 L HEMATOCRIT (test code = HCT) 33.2 % 37-47 L COMPREHENSIVE METABOLIC [id number] 13:03:00 Test Item Value Reference Range Interpretation [...] RATE (test code = GFR) mL/mi n/1.73 [id number] Range:Healthy Adults >90 mL/min/1.73 m2 For Chronic [...] TOTAL (test code = ALKP) CBC W/AUTO [id number] 12:43:00 Test Item Value Reference Range Interpretation [...]
--- NOTE | 2022-10-16 13:24 | RAD REPORT ---
EXAM DESCRIPTION: RAD - Ankle Right 3 View - 10/16/2022 1:11 pm CLINICAL HISTORY: Right ankle pain FINDINGS: Acute fracture dislocation seen involving the ankle. Linear bony density adjacent to the fifth metatarsal base presumably chronic. This should be correlat ed clinically. Very large calcaneal spur
--- NOTE | 2022-10-16 13:37 | ER ---
Nurse's Notes [facility] Name: Fady Mcdowell Age: 67 yrs Sex: Male : 1955 Arrival Date: 10/16/2022 Time: 11:37 Bed IW2 Private MD: Diagnosis: Pain in right ankle and joints of right foot Presentation: 10/16 12:00 Chief complaint: Patient states: fell of ladder on Sunday; came in and was seen but now [facility] his right ankle is hurting. Coronavirus screen: Vaccine status: Patient reports receiving the 2nd dose of the covid vaccine. Client denies travel out of the [place] in the last 14 days. Ebola Screen: Patient negative for fever greater than or equal to 101.5 degrees Fahrenheit, and additional compatible Ebola Virus Disease symptoms Patient denies exposure to infectious person. Patient denies travel to an Ebola-affected area in the 21 days before illness onset. Initial Sepsis Screen: Does the patient meet any 2 criteria? No. Patient's initial sepsis screen is negative. Does the patient have a suspected source of infection? No. Patient's initial sepsis screen is negative. Risk Assessment: Do you want to hurt yourself or someone else? Patient reports no desire to harm self or others. 12:00 Method Of Arrival: Ambulatory [facility] 12:00 Acuity: KATHARINE 4 5 Triage Assessment: 12:03 General: Appears uncomfortable, slender, well groomed, well developed, Behavior is 5 calm, cooperative, appropriate for age. Pain: Complains of pain in right foot, right ankle. Musculoskeletal: Reports pain in right ankle. Injury Description: fall. Historical: - PMHx: 12:03 Hypercholesterolemia; Hypertensive disorder; [facility] - PSHx: 12:03 bilateral knee replacement; [facility] - Immunization history:: Adult Immunizations up to date. - Social history:: Smoking status: Patient denies any tobacco usage or history of. Vital Signs: 12:00 BP 139 / 76; Pulse 72; Resp 16; Temp 97.8; Pulse Ox 100% ; Weight 83.91 kg; Height 5 jh5 ft. 6 in. (167.64 cm); Pain 8/10; 12:00 Body Mass Index 29.86 (83.91 kg, 167.64 cm) jh5 ED Course: 11:37 Patient arrived in ED. mr 11:38 [facility] Lo[facility]iza [facility]C [facility] kb 11:38 Sundar Cummings DO is Attending Physician. kb 12:02 Triage completed. jh5 12:03 Arm band placed on right wrist. jh5 13:12 Ankle Right 3 View XRAY In Process Unspecified. EDMS Administered Medications: No medications were administered Outcome: 13:37 Discharge ordered by MD. kb 13:44 Patient left the ED. 5 Signatures: Dispatcher [employer] EDMS Kandi Loaiza FNP-C FNP-Ckb Rivera, Mary mr Dunbar, Day, RN RN jh5
--- NOTE | 2022-10-16 13:37 | EDPHYS ---
Physician Documentation [facility] Name: Fady Mcdowell Age: 67 yrs Sex: Male : 1955 Arrival Date: 10/16/2022 Time: 11:37 Bed IW2 Private MD: ED Physician Sundar Cummings HPI: 10/16 15:47 This 67 yrs old Male presents to ER via Ambulatory with complaints of Foot kb Injury. 15:47 The patient presents with pain. The complaints affect the right ankle. Onset: The kb symptoms/episode began/occurred 3 day(s) ago. Context: The problem was sustained at home, resulted from the patient falling, The patient can fully bear weight on the affected extremity. can ambulate using crutches. Associated signs and symptoms: The patient has no apparent associated signs or symptoms. Modifying factors: The symptoms are alleviated by nothing, the symptoms are aggravated by weight bearing. Severity of symptoms: At their worst the symptoms were mild, moderate, in the emergency department the symptoms are unchanged. The patient has not experienced similar symptoms in the past. The patient has not recently seen a physician. Pt reports he fell off of a ladder on Sunday. Was seen here afterwards for pain in right leg, x-ray done and normal. States he woke up with pain to ankle on Sunday, tried to go to PCP today and was told to come back to ER for ankle x-ray. Historical: - PMHx: 12:03 Hypercholesterolemia; Hypertensive disorder; jh5 - PSHx: 12:03 bilateral knee replacement; 5 - Immunization history:: Adult Immunizations up to date. - Social history:: Smoking status: Patient denies any tobacco usage or history of. ROS: 15:47 Constitutional: Negative for fever, chills, and weight loss. kb 15:47 MS/extremity: Positive for pain, of the anterior aspect of right ankle. 15:47 All other systems are negative. Exam: 15:46 Constitutional: This is a well developed, well nourished patient who is awake, alert, kb and in no acute distress. Head/Face: Normocephalic, atraumatic. ENT: Moist Mucous membranes Cardiovascular: Regular rate and rhythm with a normal S1 and S2. No gallops, murmurs, or rubs. No pulse deficits. Respiratory: Respirations even and unlabored. No increased work of breathing. Talking in full sentences Abdomen/GI: Soft, non-tender. No distention Skin: Warm, dry with normal turgor. Normal color. Neuro: Awake and alert, GCS 15, oriented to person, place, time, and situation. Moves all extremities. Normal gait. Psych: Awake, alert, with orientation to person, place and time. Behavior, mood, and affect are within normal limits. 15:46 Musculoskeletal/extremity: Extremities: grossly normal except: noted in the anterior aspect of right ankle: pain, ROM: intact in all extremities, Circulation is intact in all extremities. Sensation intact. Weight bearing: can bear weight with assistance only, uses crutches. Vital Signs: 12:00 BP 139 / 76; Pulse 72; Resp 16; Temp 97.8; Pulse Ox 100% ; Weight 83.91 kg; Height 5 jh5 ft. 6 in. (167.64 cm); Pain 8/10; 12:00 Body Mass Index 29.86 (83.91 kg, 167.64 cm) jh5 MDM: 12:00 Patient medically screened. kb 13:36 Data reviewed: vital signs, nurses notes. Data interpreted: Pulse oximetry: on room air kb is 100 %. Interpretation: normal. Counseling: I had a detailed discussion with the patient and/or guardian regarding: the historical points, exam findings, and any diagnostic results supporting the discharge/admit diagnosis, radiology results, the need for outpatient follow up, a family practitioner, to return to the emergency department if symptoms worsen or persist or if there are any questions or concerns that arise at home. ED course: Discussed x-ray report with Dr Arceo. Reports should read "no fracture or dislocation.". 10/16 12:00 Order name: Ankle Right 3 View XRAY; Complete Time: 13:38 jh5 Administered Medications: No medications were administered Disposition: 21:59 Co-signature as Attending Physician, Sundar Cummings DO I was immediately available on-site ms3 in the Emergency Department for consultation in the care of the patient. . Disposition Summary: 10/16/22 13:37 Discharge Ordered Location: Home kb Condition: Stable kb Diagnosis - Pain in right ankle and joints of right foot kb Followup: kb - With: Emergency Department - When: As needed - Reason: Worsening of condition Followup: kb - With: Private Physician - When: 2 - 3 days - Reason: Recheck today's complaints, Continuance of care, Re-evaluation by your physician Discharge Instructions: - Discharge Summary Sheet kb - Musculoskeletal Pain kb Forms: - Medication Reconciliation Form kb - Thank You Letter kb - Antibiotic Education kb - Prescription Opioid Use kb Signatures: Dispatcher [employer] EDKandi Warner, Sundar Sanders DO DO ms3 Day Dunbar RN RN jh5
[2022-10-16 13:48] VITALS: BP 139/76; TEMP 97.8; O2SAT 100
== END 2022-10-16 13:44 | disposition home or self-care (01) ==
LOC: ER 11:32
DX: M25.571 Pain in right ankle and joints of right foot (principal); Z96.653 Presence of artificial knee joint, bilateral
CPT/HCPCS: 99282

== ENCOUNTER 2024-11-09 09:55 | Emergency (ER) | payer OTHER ==
[2024-11-09] MEDS ORDERED: BENZONATATE 100 MG CAP PO ONE ×2 (10:20→10:35)
[2024-11-09 11:15] LABS: SARS-CoV-2 Antigen CONTROL BLUE LINE VIS/BG OK; SARS-CoV-2 Antigen Rapid Res Negative (Negative)
--- NOTE | 2024-11-09 11:33 | RAD REPORT ---
EXAMINATION: TWO VIEW CHEST XR CLINICAL INDICATION: Male, 69 years old. [facility] MAIN COUGH Bed Name: 8 TECHNIQUE: 2 view radiographs of the chest were performed. COMPARISON: 04/23/2024 FINDINGS: Right suprahilar patchy opacity, progressive since prior exam, may reflect atelectasis or focal pneum onia. No pneumothorax or sizable effusion. The heart is normal in size. Mediastinal contours are unremarkable. IMPRESSION: Right suprahilar patchy opacity may reflect atelectasis or focal pneumonia.
--- NOTE | 2024-11-09 11:41 | ER ---
Nurse's Notes [facility] Name: Fady Mcdowell Age: 69 yrs Sex: Male : 1955 Arrival Date: 11/09/2024 Time: 09:55 Bed 8 Private MD: Diagnosis: Pneumonia, unspecified organism Presentation: 11/09 10:08 Chief complaint: Patient states: Cough, sore throat, fatigue, body aches, possible ll1 fever since Sunday. Coronavirus screen: Client denies travel out of the [place] in the last 14 days. congestion, cough unrelated to allergies, fatigue, fever, sore throat, Client presents with at least one sign or symptom that may indicate coronavirus-19. Standard/surgical mask placed on the client. Ebola Screen: Patient denies travel to an Ebola-affected area in the 21 days before illness onset. Initial Sepsis Screen: Does the patient meet any 2 criteria? No. Patient's initial sepsis screen is negative. Does the patient have a suspected source of infection? No. Patient's initial sepsis screen is negative. Risk Assessment: Do you want to hurt yourself or someone else? Patient reports no desire to harm self or others. Onset of symptoms was November 04, 2024. 10:08 Method Of Arrival: Ambulatory ll1 10:08 Acuity: KATHARINE 4 ll1 Triage Assessment: 10:09 General: Appears in no apparent distress. Behavior is calm, cooperative, appropriate ll1 for age, Reports fever for feeling ill for fatigue for. Pain: Denies pain. EENT: Reports pain when swallowing. Respiratory: Reports cough that is. Historical: - Allergies: 10:03 No Known Allergies; ll1 - PMHx: 10:03 Hypercholesterolemia; Hypertensive disorder; ll1 - PSHx: 10:03 bilateral knee replacement; ll1 - Immunization history:: Adult Immunizations up to date. - Infectious Disease History:: Denies. - Social history:: Smoking status: Patient denies any tobacco usage or history of. Screenin:37 [facility] ED Fall Risk Assessment (Adult) History of falling in the last 3 months, ll1 including since admission No falls in past 3 months (0 pts) Confusion or Disorientation No (0 pts) Intoxicated or Sedated No (0 pts) Impaired Gait No (0 pts) Mobility Assist Device Used No (0 pt) Altered Elimination No (0 pt) Score/Fall Risk Level 0 - 2 = Low Risk Maintained a safe environment, Hourly rounding (assess needs \T\ fall precautionary measures) done. Abuse screen: Denies threats or abuse. Nutritional screening: No deficits noted. Tuberculosis screening: No symptoms or risk factors identified. Assessment: 10:37 Reassessment: No changes from previously documented assessment. Patient and/or family ll1 updated on plan of care and expected duration. Pain level reassessed. Patient is alert, oriented x 3, equal unlabored respirations, skin warm/dry/pink. 11:50 Reassessment: No changes from previously documented assessment. Patient and/or family ll1 updated on plan of care and expected duration. Pain level reassessed. Patient is alert, oriented x 3, equal unlabored respirations, skin warm/dry/pink. Vital Signs: 10:08 BP 116 / 91; Pulse 98; Resp 17; Temp 97.5; Pulse Ox 98% on R/A; Weight 83.91 kg; Height ll1 5 ft. 6 in. ; Pain 0/10; 11:50 BP 140 / 74; Pulse 88; Resp 16; Pulse Ox 98% ; Pain 0/10; ll1 10:08 Body Mass Index 29.86 (83.91 kg, 167.64 cm) ll1 10:08 Pain Scale: Adult ll1 11:50 Pain Scale: Adult ll1 ED Course: 09:59 Patient arrived in ED. al6 10:02 Sai Galvan PA is PHCP. cp 10:02 Kade Allen MD is Attending Physician. cp 10:03 Arm band placed on Patient placed in an exam room, on a stretcher. ll1 10:07 Eric Aguilera, YOMI is Primary Nurse. ll1 10:09 Triage completed. ll1 10:24 XRAY Chest Pa And Lat (2 Views) In Process Unspecified. EDMS 10:30 COVID swab sent to lab. Flu and/or RSV swab sent to lab. Strep swab sent to lab. ll1 10:37 No provider procedures requiring assistance completed. Patient did not have IV access ll1 during this emergency room visit. 10:38 Patient has correct armband on for positive identification. Provided Education on: ER ll1 procedures and process. Administered Medications: 10:33 Drug: Tessalon Perle PO 200 mg PO once Route: PO; ll1 11:15 Follow up: Response: No adverse reaction; RASS: Alert and Calm (0) [facility] 11:52 Drug: AZITHromycin PO 500 mg PO once Route: PO; 1 12:04 Follow up: Response: No adverse reaction 1 Medication: 10:38 VIS not applicable for this client. 1 Outcome: 11:41 Discharge ordered by . noreen 11:52 Patient left the ED. 1 11:52 Discharged to home ambulatory, 1 11:52 Condition: stable 11:52 Discharge instructions given to patient, Instructed on discharge instructions, follow up and referral plans. medication usage, Demonstrated understanding of instructions, follow-up care, medications, Prescriptions given X 3, Signatures: Dispatcher [employer] EDMS Sai Galvan PA PA cp Lewis, Lynsay, RN RN 1 Nathaly Ortega al6
--- NOTE | 2024-11-09 11:42 | EDPHYS ---
Physician Documentation [facility] Name: Fady Mcdowell Age: 69 yrs Sex: Male : 1955 Arrival Date: 11/09/2024 Time: 09:55 Bed 8 Private MD: ED Physician Kade Allen HPI: 11/09 10:20 This 69 yrs old Male presents to ER via Ambulatory with complaints of Flu cp Symptoms. 10:20 The patient or guardian reports cough, that is intermittent, flu symptoms. cp 10:20 Onset: The symptoms/episode began/occurred 5 day(s) ago. Associated signs and symptoms: cp Pertinent positives: sore throat, Pertinent negatives: diarrhea, vomiting. Severity of symptoms: in the emergency department the symptoms are unchanged despite home interventions. Historical: - Allergies: 10:03 No Known Allergies; ll1 - PMHx: 10:03 Hypercholesterolemia; Hypertensive disorder; ll1 - PSHx: 10:03 bilateral knee replacement; ll1 - Immunization history:: Adult Immunizations up to date. - Infectious Disease History:: Denies. - Social history:: Smoking status: Patient denies any tobacco usage or history of. ROS: 10:25 Eyes: Negative for injury, pain, redness, and discharge, cp 10:25 Constitutional: Positive for body aches, Negative for fever, 10:25 ENT: Positive for sore throat, Negative for drainage from ear(s), ear pain, difficulty swallowing, difficulty handling secretions, 10:25 Cardiovascular: Negative for chest pain, edema, palpitations, 10:25 Respiratory: Positive for cough, "sounds productive", 10:25 Abdomen/GI: Negative for abdominal pain, vomiting, diarrhea, constipation, 10:25 Neuro: Negative for altered mental status, 10:25 All other systems are negative, cp Exam: 10:30 Constitutional: The patient appears in no acute distress, alert, awake, cp non-diaphoretic, non-toxic, well developed, well nourished, 10:30 Head/Face: Normocephalic, atraumatic. cp 10:30 Eyes: Periorbital structures: appear normal, Conjunctiva: normal, no exudate, no injection, Sclera: no appreciated abnormality, Lids and lashes: appear normal, bilaterally, 10:30 ENT: External ear(s): are unremarkable, Ear canal(s): are normal, clear, TM's: dullness, bilaterally, Nose: is normal, Mouth: Lips: moist, Oral mucosa: moist, Posterior pharynx: Airway: no evidence of obstruction, patent, Tonsils: no enlargement, no exudate, erythema, that is mild, Voice: is normal, 10:30 Neck: ROM/movement: Meningeal signs: are not present, 10:30 Chest/axilla: Inspection: normal, 10:30 Cardiovascular: Rate: normal, Rhythm: regular, Edema: is not appreciated, JVD: is not appreciated, 10:30 Respiratory: the patient does not display signs of respiratory distress, Respirations: normal, no use of accessory muscles, no retractions, labored breathing, is not present, Breath sounds: bronchial sounds, that are mild, are heard diffusely, stridor, is not appreciated, wheezing: is not appreciated, 10:30 Abdomen/GI: Inspection: abdomen appears normal, Palpation: abdomen is soft and non-tender, in all quadrants, 10:30 Neuro: Orientation: to person, place \\T\\ time. Mentation: is normal, Vital Signs: 10:08 BP 116 / 91; Pulse 98; Resp 17; Temp 97.5; Pulse Ox 98% on R/A; Weight 83.91 kg; Height ll1 5 ft. 6 in. ; Pain 0/10; 11:50 BP 140 / 74; Pulse 88; Resp 16; Pulse Ox 98% ; Pain 0/10; ll1 10:08 Body Mass Index 29.86 (83.91 kg, 167.64 cm) ll1 10:08 Pain Scale: Adult ll1 11:50 Pain Scale: Adult ll1 MDM: 10:04 Medical Screening Exam initiated cp 11:40 Data reviewed: vital signs, nurses notes, lab test result(s), radiologic studies, plain cp films, and as a result, I will discharge patient. 11:40 Differential diagnosis: bronchitis, flu, URI, sepsis, pneumonia. Antibiotic cp administration: The patient is discharged and will get outpatient antibiotics, Zithromax. I considered the following discharge prescriptions or medication management in the emergency department Medications were administered in the Emergency Department. See MAR. Counseling: I had a detailed discussion with the patient and/or guardian regarding the historical points, exam findings, and any diagnostic results supporting the discharge/admit diagnosis, lab results, radiology results, to return to the emergency department if symptoms worsen or persist or if there are any questions or concerns that arise at home. Response to treatment: the patient's symptoms have mildly improved after treatment, and as a result, I will discharge patient. 11/09 10:16 Order name: Strep cp 11/09 10:16 Order name: Influenza Screen (a \\T\\ B); Complete Time: 11:37 cp 11/09 10:16 Order name: RSV; Complete Time: 11:37 cp 11/09 10:16 Order name: SARS RAPID; Complete Time: 11:37 cp 11/09 11:18 Order name: Throat Culture EDMS 11/09 10:16 Order name: XRAY Chest Pa And Lat (2 Views); Complete Time: 11:37 cp Administered Medications: 10:33 Drug: Tessalon Perle PO 200 mg PO once Route: PO; ll1 11:15 Follow up: Response: No adverse reaction; RASS: Alert and Calm (0) ll1 11:52 Drug: AZITHromycin PO 500 mg PO once Route: PO; ll1 12:04 Follow up: Response: No adverse reaction ll1 Disposition: 18:56 Co-signature as Attending Physician, Kade Allen MD I reviewed the patient's care rn provided by the Advanced Practice Provider and agree with the diagnosis and treatment plan. Disposition Summary: 11/09/24 11:41 Discharge Ordered Notes: Location: Home cp Problem: new cp Symptoms: have improved cp Condition: Stable cp Diagnosis - Pneumonia, unspecified organism cp Followup: cp - With: Private Physician - When: 2 - 3 days - Reason: Worsening of condition Discharge Instructions: - Discharge Summary Sheet cp - Community-Acquired Pneumonia, Adult cp Forms: - Medication Reconciliation Form cp - Antibiotic Education cp - Prescription Opioid Use cp - Patient Portal Instructions cp - Leadership Thank You Letter cp Prescriptions: - Bromfed DM 2-30-10 mg/5 mL Oral syrup - administer 10 milliliter ORAL route every 6 hours as needed for cold symptoms; cp 240 milliliter; Refills: 0, Product Selection Permitted - Ibuprofen 800 mg Oral Tablet - take 1 tablet ORAL route every 8 hours As needed take with food; 30 tablet; cp Refills: 0, Product Selection Permitted - Zithromax Z-Peter 250 mg Oral Tablet - take 1 tablet ORAL route as directed for 5 days Day 1 - take two (2) tablets cp one time. Day 2, 3, 4 , 5 take one (1) tablet once daily.; 6 tablet; Refills: 0, Product Selection Permitted Signatures: Dispatcher [employer] EDNC Kade Allen MD MD rn Sai Galvan, PA PA cp Eric Aguilera RN RN ll1 Corrections: (The following items were deleted from the chart) 10:16 10:16 Group A Streptococcus Rapid Sc+BA.LAB.BRZ ordered. EDMS EDMS 10:16 10:16 Influenza Screen (A \\T\\ B)+BA.LAB.BRZ ordered. EDMS EDMS 10:16 10:16 Respiratory Syncytial Virus Ag+BA.LAB.BRZ ordered. EDMS EDMS 10:16 10:16 SARS-COV-2 Antigen Rapid+I.LAB.BRZ ordered. EDMS EDMS 10:16 10:16 Chest Pa And Lat (2 Views)+RAD.RAD.BRZ ordered. EDNC EDMS 11/10 10:56 10:54 Constitutional: Positive for body aches, Negative for fever, cp cp 10:56 10:54 Respiratory: Positive for cough, "sounds productive", cp cp 10:56 10:54 Cardiovascular: Negative for chest pain, edema, palpitations, cp cp 10:56 10:54 Abdomen/GI: Negative for abdominal pain, vomiting, diarrhea, constipation, cp cp 10:56 10:54 Eyes: Negative for injury, pain, redness, and discharge, cp cp 10:56 10:54 ENT: Positive for sore throat, Negative for drainage from ear(s), ear pain, cp difficulty swallowing, difficulty handling secretions, cp 10:56 10:54 Neuro: Negative for altered mental status, cp cp
[2024-11-09] MEDS ORDERED: AZITHROMYCIN 250 MG TAB ONE (11:48)
[2024-11-11 16:02] VITALS: BP 116/91; TEMP 97.5; O2SAT 98
== END 2024-11-09 11:52 | disposition home or self-care (01) ==
LOC: ER 09:55
DX: J18.9 Pneumonia, unspecified organism (principal); I10 Essential (primary) hypertension; E78.00 Pure hypercholesterolemia, unspecified; Z11.52 Encounter for screening for COVID-19
CPT/HCPCS: 36415; 71046; 87070; 87081; 87804; 87807; 87811; 99283